=== PATIENT | female | born 1970 ===

== ENCOUNTER 2022-02-21 12:45 | Outpatient (REF) | payer OTHER, SELFPAY ==
[2022-02-21 13:28] LABS: Hemoglobin 13.7 g/dl (12.0-16.0); Mean Corpuscular HGB Conc 31.1 g/dl (31.0-35.0); Mean Corpuscular Volume 83.7 fL (80.0-98.0); Platelet Count 301 X10*3/uL (160-400); Red Blood Count 5.26 X10*6/uL (4.20-5.50); Red Cell Distribution Width 13.5 % (11.0-16.0); White Blood Count 7.2 X10*3/uL (4.8-10.8)
[2022-02-21 13:57] LABS: Alanine Aminotransferase 10 U/L (0-31); Albumin Level 4.3 g/dL (3.5-5.0); Alkaline Phosphatase 88 U/L (39-117); Anion Gap 10 (12-20); Aspartate Amino Transferase 18 U/L (5-31); Bilirubin Total 0.4 mg/dL (0.0-1.0); Blood Urea Nitrogen 20 mg/dL (9-16); Calcium 9.4 mg/dL (8.4-10.2); Carbon Dioxide 28 mmol/L (22-29); Chloride 104 mmol/L (96-108); Cholesterol 221 mg/dL; Estimated Glomerular Filt Rate > 60; Glucose Fasting 95 mg/dL (60-99); HDL Cholesterol 68 mg/dL; LDL Cholesterol Calculated 132 mg/dl; Potassium 4.4 mmol/L (3.3-5.1); Sodium 138 mmol/L (135-145); Total Protein 7.1 g/dL (6.5-8.0); Triglycerides 108 mg/dL
[2022-02-21 14:10] LABS: TSH reflex Free T4 2.04 uIU/mL (0.32-4.0)
== END 2022-02-21 12:46 | disposition home or self-care (01) ==
LOC: HO.WFDLDS 12:45
PROVIDERS: Visit Provider Hospitalist
DX: Z00.00 Encounter for general adult medical examination without abnormal findings (principal)
CPT/HCPCS: 36415; 80053; 80061; 84443; 85027

== ENCOUNTER 2022-11-14 12:55 | Outpatient (REF) | payer OTHER, SELFPAY ==
[2022-11-14 14:17] LABS: MANUAL DIFF FLAG NO
[2022-11-14 14:21] LABS: Basophils Percent Auto 0.5 % (0-2); Eosinophils Absolute Auto 0.3 X10*3/uL (0.0-0.4); Eosinophils Percent Auto 3.9 % (0-4); Hemoglobin 14.3 g/dl (12.0-16.0); Imm Gran Abs Auto 0.03 X10*3/uL (0.00-0.03); Imm Gran Pct Auto 0.4 % (0.0-0.4); Lymphocytes Absolute Auto 2.7 X10*3/uL (1.2-4.9); Lymphocytes Percent Auto 34.3 % (20-40); Mean Corpuscular HGB Conc 31.8 g/dl (31.0-35.0); Mean Corpuscular Hemoglobin 26.7 pg (27.0-33.0); Mean Platelet Volume 10.7 fL (9.4-12.3); Monocytes Absolute Auto 0.5 X10*3/uL (0.1-1.2); Monocytes Percent Auto 6.6 % (2-11); Neutrophils Absolute Auto 4.3 x10*3/uL (2.0-8.3); Neutrophils Percent Auto 54.3 % (45-73); Platelet Count 272 X10*3/uL (160-400); Red Blood Count 5.36 X10*6/uL (4.20-5.50); Red Cell Distribution Width 13.1 % (11.0-16.0); White Blood Count 7.9 X10*3/uL (4.8-10.8)
[2022-11-14 15:00] LABS: Alanine Aminotransferase 16 U/L (0-31); Albumin Level 4.4 g/dL (3.5-5.0); Alkaline Phosphatase 76 U/L (39-117); Anion Gap 13 (12-20); Aspartate Amino Transferase 24 U/L (5-31); Bilirubin Total 0.8 mg/dL (0.0-1.0); Blood Urea Nitrogen 12 mg/dL (9-16); Calcium 9.4 mg/dL (8.4-10.2); Carbon Dioxide 27 mmol/L (22-29); Chloride 103 mmol/L (96-108); Estimated Glomerular Filt Rate > 60; Glucose Random 83 mg/dL (60-115); Potassium 4.2 mmol/L (3.3-5.1); Sodium 139 mmol/L (135-145); Total Protein 7.1 g/dL (6.5-8.0)
== END 2022-11-14 12:56 | disposition home or self-care (01) ==
LOC: HO.WFDLDS 12:55
PROVIDERS: Visit Provider Family Medicine
DX: Z00.00 Encounter for general adult medical examination without abnormal findings (principal); K92.2 Gastrointestinal hemorrhage, unspecified
CPT/HCPCS: 36415; 80053; 85025

== ENCOUNTER 2022-11-21 10:54 | Outpatient (REF) | payer OTHER, SELFPAY ==
--- NOTE | ~2022-11-21 | CT_ITS ---
EXAMINATION: CT ABDOMEN AND PELVIS WITHOUT AND WITH CONTRAST CLINICAL INFORMATION: Gastrointestinal hemorrhage. COMPARISON: None TECHNIQUE: Multidetector volumetric imaging was performed of the abdomen and pelvis before and after the IV administration of 80 mL of Omnipaque 350 intravenous contrast. 2 minute delayed acquisition also performed. Sagittal and coronal reformatted images were obtained on the technologist's workstation. This CT examination was performed using dose optimization techniques as appropriate, variously including the following: *Automated exposure control *Adjustment of mA and/or kV according to patient size (this includes techniques or standardized protocols for targeted exams where dose is matched to indication/reason for exam; i.e. extremities or head) *Use of iterative reconstruction technique DLP: 548 mGy-cm FINDINGS: LUNG BASES: The visualized lung bases are unremarkable. LIVER, GALLBLADDER, AND BILIARY TREE: The liver is normal in size, shape, and attenuation. No focal hepatic lesion or biliary ductal dilatation is present. The gallbladder is unremarkable with no evidence of radiopaque gallstones, gallbladder wall thickening, or obvious pericholecystic inflammatory changes. PANCREAS: Unremarkable SPLEEN: Unremarkable ADRENAL GLANDS: Unremarkable KIDNEYS AND URETERS: The kidneys are normal in size, shape, and attenuation. No hydronephrosis, hydroureter, or calculi seen. No perinephric stranding. BLADDER: Unremarkable GASTROINTESTINAL TRACT: The stomach is normally distended without wall thickening. No focal abnormality. Normal caliber small bowel. Duodenal diverticulum noted. No obstruction. There is no colonic wall thickening or acute inflammation. Diffuse colonic diverticulosis without diverticulitis. Normal appendix. There is no arterial blush of intraluminal contrast identified. There is no pooling of contrast on the delayed acquisition. ABDOMINAL WALL: No significant hernia is appreciated. LYMPH NODES: Normal VASCULAR: Unremarkable PELVIC VISCERA: The uterus and adnexa are unremarkable. OSSEOUS STRUCTURES: No acute or suspicious osseous abnormality. CT/CT abdomen pelvis wo/w IV con IMPRESSION: No acute finding of the abdomen or pelvis. No evidence of active gastrointestinal bleeding. Diffuse colonic diverticulosis without diverticulitis. Fleischner guidelines were followed.
[2022-11-21] MEDS: iohexoL 350 MG/ML 100 ML INFUS..BTL 80 ML IV (11:49)
== END 2022-11-21 10:55 | disposition home or self-care (01) ==
LOC: HO.CT 10:54
PROVIDERS: PCP Hospitalist; Visit Provider Family Medicine
DX: K92.2 Gastrointestinal hemorrhage, unspecified (principal)
CPT/HCPCS: 74178; Q9967

== ENCOUNTER 2022-12-11 12:04 | Outpatient (REF) | payer OTHER, SELFPAY ==
--- NOTE | ~2022-12-11 | XR_ITS ---
EXAMINATION: XR FOOT, RIGHT CLINICAL INFORMATION: Pain in the foot. COMPARISON: None TECHNIQUE: AP, lateral, and oblique views of the right foot. FINDINGS: The bones and soft tissues are normal. No fracture. Alignment is anatomic. Joint spaces are maintained. There is a small plantar calcaneal spur. Small spur at the posterior calcaneus at the Achilles tendon insertion. XR/XR foot RT 2V IMPRESSION: Normal right foot.
== END 2022-12-11 12:05 | disposition home or self-care (01) ==
LOC: HO.XRAY 12:04
PROVIDERS: PCP Hospitalist; Visit Provider Hospitalist
DX: M79.671 Pain in right foot (principal); J45.20 Mild intermittent asthma, uncomplicated; Z91.048 Other nonmedicinal substance allergy status
CPT/HCPCS: 73620

== ENCOUNTER 2023-06-19 10:40 | Outpatient (AMB) | payer OTHER, SELFPAY ==
[2023-06-19 10:44] VITALS: BP 118/72; PULSE 80; RESP 14; TEMP 35.7; O2SAT 98; BMI 21.5
--- NOTE | 2023-06-19 10:44 | A.OFFPC_ITS ---
Vital Signs 06/19/23 10:44 Height 5 ft Weight 110 lb BMI 21.5 BP 118/72 Blood Pressure Location Lt brachial Position Sitting Respiration 14 Pulse 80 Pulse Source Pulse Oximeter Temp 96.2 F L Temp Source Temporal Artery Scan Pulse Oximetry (%) 98 Oxygen Delivery Method Room Air Intake Visit Reasons: [facility] 06/09/23 - asthma Intake Note: Patient was seen at [facility] on 06/09/2023 for an asthmatic flare up. Patient reports her asthma is exacerbated by mold- currently stemming from her environment due to the frequent rain. Patient reports she has a few gardens and [place] Patient reports she had another flare up x2 days ago and she was able to slow down the flare up with the steroids as previously prescribed. Electrical Instrumentation Technician Required: No Accompanied by: Self / Same As Patient Allergies cat dander Allergy (Severe, Verified 06/19/23 10:55) Swelling mold Allergy (Severe, Verified 06/19/23 10:55) Anaphylaxis Seasonal Allergies Allergy (Intermediate, Verified 06/19/23 10:55) itching eyes, running nose dairy Adverse Reaction (Mild, Uncoded 06/19/23 10:55) Diarrhea Medication List - Last Reviewed 06/19/23 by Ebony Beltran albuterol sulfate 90 mcg/actuation (Ventolin HFA) 2 puffs inhalation Q4-6H PRN 1 month budesonide-formoterol 80-4.5 mcg/actuation (Symbicort) 2 puffs inhalation BID ipratropium-albuterol 0.5 mg-3 mg(2.5 mg base)/3 mL 3 mL inhalation Q4H PRN loratadine (Allergy Relief (loratadine)) 10 mg PO DAILY 3 months methylprednisolone 0 mg PO pantoprazole 40 mg PO DAILY Tobacco use date assessed: 06/19/23 Dental Screening Dental Screen Date: 06/19/23 Did you have a dental visit in the last 12 months?: No Did you have a dental problem in the last 6 months where you did not have access to dental care?: No Was dental information given to patient?: Patient has dentist HPI HPI Comments History of Present Illness Details 53-year-old female presents for a follow-up visit. She has history of allergic rhinitis and moderate persistent asthma. She was at [facility] between 06/08/2023 and 06/09/2023 for increasing shortness of breath for over week. She noted she was cleaning her chicken coop when her symptoms worsened. She took asthma inhaler including nebulizer without relief. EMS arrived on the scene and give her 2 nebulizer treatment and 125 mg Solu-Medrol. ED notes: She was found to have hypoxia on ambulation. She was diagnosis moderate persistent asthma with acute exacerbation. She was treated with IV Solu-Medrol and DuoNeb. She was sent home on Medrol Dose Pack and recommended to follow-up with pulmonology. Labs and chest x-ray were unrevealing. She reports continued intermittent nonproductive since her symptoms started 2 weeks ago. No associated symptoms at this time. She attributes asthma exacerbation to moles in an environment, severe due to frequent rain. She states [place] area and is very involved in gardening. She reports h/o asthma exacerbation between May and June. She is on prescribed Symbicort; she notes she has not used the inhaler for the past 6 months; she notes her health plan was changed by the state and the medication is no longer covered. She also notes that her albuterol inhaler is also not longer covered by her health plan; she notes she has been getting the inhaler from a friend who is a health managed care liaison. [facility] Surgical History History of carpal tunnel surgery History of section Family History Mother No problems noted. Father No problems noted. Other Substance use disorder Social History Housing: House Alcohol intake: former Patient Tobacco Use Status: Never used Tobacco e-Cigarette/Vaping Use: Never Used Second Hand Smoke Exposure: Yes service: No Current occupational status: unemployed Cognitive needs: No Hearing needs: No Vision needs: No Questionnaire JERE-7 AMB Questionnaire JERE-7 Date JERE - 7 assessed: 10/17/21 Source: Developed by Drs. Juventino Wilson, Juana Hernández, Jasbir Lee and colleagues, with an educational haroldo from [employer]. ACT Questionnaire In the past 4 weeks, how much of the time did your asthma keep you from getting as much done at work, school or at home?: Some of the time During the past 4 weeks, how often have you had shortness of breath?: More than once a day During the past 4 weeks, how often did your asthma symptoms wake you up at night or earlier than usual in the morning?: 2-3 nights a week During the past 4 weeks, how often have you had to use your rescue inhaler or nebulizer medication?: More than 3 times per day How would you rate your asthma control during the past 4 weeks?: Somewhat controlled ACT Interpretation: Positive Score: 10 Review of Systems Const Details: Const Denies chills, Denies fatigue, Denies fever(s), Denies headache(s) and Denies weakness ENT Denies dizziness and Denies headache(s) Card Denies chest pain, Denies lightheadedness, Denies dyspnea and Denies other (Palpitations) Resp Reports cough, Denies dyspnea, Denies wheezing and Denies other ( shortness of breath) GI Denies abdominal pain, Denies melena, Denies hematochezia, Denies change in bowel habits, Denies dyspepsia and Denies nausea Denies hematuria and Denies dysuria Musc Denies abnormal gait, Denies myalgias, Denies arthralgias, Denies numbness and Denies tingling Skin/Breast Denies rash, Denies unusual bruising and Denies wounds Neuro Denies abnormal gait, Denies dizziness, Denies headache(s), Denies memory loss, Denies numbness, Denies Sensory deficit (Neuro), Denies tingling and Denies weakness Psych Denies anxiety, Denies depression, Denies memory loss Endo Denies cold intolerance, Denies fatigue, Denies heat intolerance, Denies polydipsia and Denies polyuria Aller/Immun Denies wheezing Physical exam (Primary Care) Vital Signs: Last Vital Signs Temp 96.2 F L 06/19/23 10:44 Pulse 80 06/19/23 10:44 Resp 14 06/19/23 10:44 BP 118/72 06/19/23 10:44 Pulse Ox 98 06/19/23 10:44 Oxygen Delivery Method Room Air 06/19/23 10:44 BMI result Body Mass Index 21.5 Tobacco/Smoking Status: Tobacco use Status Tobacco use date assessed 06/19/23 06/19/23 10:58 Patient Tobacco Use Status Never used Tobacco 06/19/23 10:48 e-Cigarette/Vaping Use Never Used 06/19/23 10:48 Const Other: General: no acute distress and well developed Nutritional Appearance: well nourished Orientation/consciousness: patient oriented x3 [facility] Head: Yes normocephalic and Yes atraumatic Eyes General: appearance normal, both eyes and all related structures Pupils: Equal, round and reactive pupils present EOM: EOMs intact bilaterally Resp Effort & Inspection: normal respiratory effort Auscultation: clear to auscultation bilaterally Cardio Rate: regular rate Rhythm: regular rhythm Heart sounds: S1 normal heart sound present, S2 normal heart sound present, no gallops, no murmurs and no rubs GI Palpation (GI): No Abdominal aortic bruit present, Soft to palpation, nontender, No hepatosplenomegaly present and No Rebound tenderness present Auscultation: normal bowel sounds General: Yes no CVA tenderness Back/Spine/Pelvis Back: no CVA tenderness Cervical Spine: cervical ROM normal and No Cervical spine tenderness Thoracic/Lumbar Spine: thoraco-lumbar ROM normal, No pain with thoraco-lumbar ROM, No thoracic spinal tenderness and No lumbar spinal tenderness Extrem General: Yes normal to inspection, No edema and No calf tenderness Skin General: warm and dry. Normal skin color. Normal skin turgor Lesions: no lesions Rashes: no rashes Trauma: no lacerations or abrasions Wounds: no wounds Nails: normal Neuro General: patient oriented x3, gait normal and no focal neuro deficit Cranial nerves: Yes Equal, round and reactive pupils present Cognition (Neuro): normal cognition Gait exam (Neuro): Normal gait present Sensory Exam: No Sensory deficit (Neuro) Psych Appearance: grossly normal Affect: normal affect Attitude: cooperative Thought process: Normal thought process present Assessment and Plan Assessment & Plan (1) Moderate persistent asthma with acute exacerbation: Code(s): J45.41 - Moderate persistent asthma with (acute) exacerbation Plan: Lung sounds clear and equal bilaterally Continue with current treatment regimen Encouraged to avoid asthma triggers The MA will contact the patient's health plan to determine coverage for rescue and long-term asthma inhalers Urgent pulmonology referral made Follow-up in 1 month or return sooner with worsening or new symptoms Verbalized understanding and agreed with treatment plan. Orders: Referrals Pulmonology Referral J45.41 - Moderate persistent asthma with (acute) exacerbation Coding Level of Care Code Est Pt Level 3 (06244) Diagnoses Moderate persistent asthma with acute exacerbation J45.41
== END 2023-06-19 11:22 | disposition home or self-care (01) ==
PROVIDERS: PCP Hospitalist; Visit Provider Nurse Practitioner Family
DX: J45.41 Moderate persistent asthma with (acute) exacerbation (principal)
CPT/HCPCS: 99213

== ENCOUNTER 2023-07-02 | Outpatient (REF) | payer OTHER, SELFPAY | END 2023-07-02 00:01 | disposition home or self-care (01) | LOC: CF | PROVIDERS: Visit Provider Nurse Practitioner Family | DX: J45.909 Unspecified asthma, uncomplicated (principal); R06.00 Dyspnea, unspecified; Z79.899 Other long term (current) drug therapy; Z91.09 Other allergy status, other than to drugs and biological substances | CPT/HCPCS: 94640; 99212 ==

== ENCOUNTER 2023-07-02 15:16 | Outpatient (AMB) | payer OTHER, SELFPAY ==
[2023-07-02 15:18] VITALS: BP 108/64; PULSE 68; O2SAT 100; BMI 22.1
--- NOTE | 2023-07-02 15:18 | MHC.OFFVIS ---
Intake Vital Signs 07/02/23 15:18 Height 5 ft Weight 113 lb BMI 22.1 BP 108/64 Blood Pressure Location Lt brachial Position Sitting Pulse 68 Pulse Source Pulse Oximeter Pulse Oximetry (%) 100 Oxygen Delivery Method Room Air Intake Visit Reasons: Asthma Coffee Break Attendant: Coffee Break Attendant offered & declined Accompanied by: Self / Same As Patient Allergies cat dander Allergy (Severe, Verified 07/02/23 15:24) Swelling mold Allergy (Severe, Verified 07/02/23 15:24) Anaphylaxis Seasonal Allergies Allergy (Intermediate, Verified 07/02/23 15:24) itching eyes, running nose dairy Adverse Reaction (Mild, Uncoded 07/02/23 15:24) Diarrhea Medication List - Last Reconciled 07/02/23 by Alivia Ang LPN albuterol sulfate 90 mcg/actuation 2 puffs inhalation Q4-6H PRN 90 days budesonide-formoterol 80-4.5 mcg/actuation (Symbicort) 2 puffs inhalation BID 90 days ipratropium-albuterol 0.5 mg-3 mg(2.5 mg base)/3 mL 3 mL inhalation Q4H PRN loratadine (Allergy Relief (loratadine)) 10 mg PO DAILY 3 months methylprednisolone 0 mg PO pantoprazole 40 mg PO DAILY HPI Asthma HPI Details Lucía is a pleasant 53 year old female,never smoker, with underlying severe asthma. She was referred by PCP for pulmonary evaluation. She reports dry cough, chest tightness and intermittent wheezing. She describes episodes of sudden onset chest tightness with syncope that have occurred in the past and have happened more frequently over the last two months. The last episode was at the end of May where she was given IV steroids, epi, magnesium and admitted to [facility] 3 nights. In 2019, she was reportedly intubated due to acute respiratory failure. She reports symptoms are suboptimally controlled with duoneb which she uses 2-3 times per day. She was recently prescribed symbicort but has been reluctant to use due to potential side effects. 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 She has been out of work since 2019. She was under the care of [facility] in [place] where she reports having allergy testing performed for food and molds as well as infusions to detox metals . She underwent infusions from [id number] and states her symptoms were quite controlled during this time. She also reports having environmental allergies, as well as cats, dogs and chickens. She denies any family history of lung conditions. [facility] Surgical History History of carpal tunnel surgery History of section Family History Mother No problems noted. Father No problems noted. Other Substance use disorder Social History (Updated 07/02/23 @ 15:26 by Alivia Ang LPN) Housing: House Alcohol intake: former Patient Tobacco Use Status: Never used Tobacco e-Cigarette/Vaping Use: Never Used Second Hand Smoke Exposure: Yes service: No Current occupational status: unemployed Cognitive needs: No Hearing needs: No Vision needs: No Review of Systems Const Denies chills, Denies excessive sweating, Denies fever(s), Denies headache(s) and Denies night sweats Eyes Denies dry eyes, Denies irritation and Denies itchy eyes ENT Reports Normal hearing present, Denies headache(s), Denies nasal congestion, Denies nasal discharge, Denies post nasal drip and Denies sore throat Card Denies chest pain, Denies chest pain at rest, Denies chest pain with activity, Denies claudication, Denies leg edema, Denies orthopnea and Denies paroxysmal nocturnal dyspnea Resp Denies chest congestion, Denies excessive phlegm production, Denies pain on inspiration, Denies pain with cough and Denies stridor Musc Denies myalgias Neuro Reports Normal hearing present and Denies headache(s) Endo Denies excessive sweating Alex/Lymph Denies lymphadenopathy Aller/Immun Denies itchy eyes and Denies seasonal rhinorrhea Physical Exam Vital Signs: Last Vital Signs Pulse 68 07/02/23 15:18 BP 108/64 07/02/23 15:18 Pulse Ox 100 07/02/23 15:18 Oxygen Delivery Method Room Air 07/02/23 15:18 BMI result Body Mass Index 22.1 Const General: cooperative, healthy appearing, comfortable, no acute distress, well developed and alert Orientation/consciousness: patient oriented x3 Limitations: no limitations HEENT Head: Yes normal to inspection, Yes normocephalic and Yes atraumatic Ears: hearing grossly normal bilaterally and external ears normal Eyes General: appearance normal, both eyes and all related structures Eyelids: Yes eyelids normal Sclerae: sclerae normal EOM: EOMs intact bilaterally Neck Neck: Yes normal visual inspection and Yes no lymphadenopathy Lymphatic: no lymphadenopathy noted Chest Chest palpation & inspection: normal inspection of the chest Resp Other: lungs sound diminished, improved after duoneb Effort & Inspection: normal respiratory effort, able to speak in complete sentences, no audible wheezes, no cough, no stridor, not tachypneic, no tripod positioning and no use of accessory muscles Cardio Jugular venous distension: no JVD Rate: regular rate Rhythm: regular rhythm Skin Other: warm, dry General skin exam: no rashes or lesions noted Neuro General: patient oriented x3 Cranial nerves: Yes Normal hearing present Cognition (Neuro): normal cognition Gait exam (Neuro): Normal gait present Extrem General: Yes normal to inspection, Yes capillary refill normal, Yes no clubbing, cyanosis or edema and Yes no pedal edema Psych Appearance: grossly normal and well kempt Speech and movement: Normal speech and movement present and Clear speech present Affect: normal affect Attitude: cooperative Thought process: Normal thought process present Thought content: Normal thought content present Insight: Good insight present (Psych) Judgement: Good judgement present (Psych) Office Procedures Nebulizer Treatment Nebulizer Treatment [id number]-Hyafzvlnt/MDI RX initial, or Nebulizer Subsequent Treatment Office Meds ipratropium 0.5 mg-albuterol 3 mg (2.5 mg base)/3 mL nebulization soln Performing Provider: Bonita Boykin NP Performing Location: [facility] Administered by: Alivia Ang LPN on 07/02/23 16:07 Dose Route Admin Location Dispensed Lot Number Expiration Date [facility] Frame Runner 3 mL inhalation 3 mL [id number] 11/27/24 [id number] [facility] Assessment & Plan Assessment & Plan (1) Asthma: Code(s): J45.909 - Unspecified asthma, uncomplicated (2) Environmental allergies: Code(s): Z91.09 - Other allergy status, other than to drugs and biological substances Plan Lucía's symptoms may be multifactorial given occupational exposures as well as exposure to birds with underlying severe asthma. Will send for PFT as well as chest CT and labs to assess for the possibility of interstitial lung disease. During the visit, she reported an increase in chest tightness, which improved after duoneb. Encouraged patient to trial symbicort prescribed by PCP. Educated on importance of oral hygiene after inhaler use. All questions were answered and patient is in agreement of plan. Will follow up in 6 weeks to review results. Orders: Orders Hypersensitive Pneumonitis Prf Today R06.00 - Dyspnea, unspecified Rast Allergen Today Z91.09 - Other allergy status, other than to drugs and biological substances AMB Nebulizer Treatment 07/02/23 J45.909 - Unspecified asthma, uncomplicated Complete Blood Count Auto Diff Today J45.909 - Unspecified asthma, uncomplicated CT chest wo IV con Today R06.00 - Dyspnea, unspecified PFT pulmonary function test Today J45.909 - Unspecified asthma, uncomplicated Medications: Discontinued albuterol sulfate 90 mcg/actuation Discontinued Reason: Doctor's Order 2 puffs inhalation Q4-6H 90 days PRN 8.5 grams 0RF shortness of breath or wheezing Coding Level of Care Code New Pt Level 4 (47690) Diagnoses Asthma J45.909 Environmental allergies Z91.09 CPT Codes Nebulizer Treatment - Nebulizer Treatment, initial or subsequent: [id number]/MDI RX initial, or Nebulizer Subsequent Treatment ([id number])
== END 2023-07-02 16:36 | disposition home or self-care (01) ==
LOC: HO.HPSW 15:16
PROVIDERS: PCP Hospitalist; Visit Provider Nurse Practitioner Family
DX: J45.909 Unspecified asthma, uncomplicated (principal); Z91.09 Other allergy status, other than to drugs and biological substances
CPT/HCPCS: 99204

== ENCOUNTER 2023-07-03 10:29 | Outpatient (REF) | payer OTHER, SELFPAY ==
[2023-07-07 10:02] LABS: CRP High Sensitivity 0.4 mg/L
== END 2023-07-03 10:30 | disposition home or self-care (01) ==
LOC: HO.WFDLDS 10:29
PROVIDERS: Visit Provider Family Medicine
DX: R10.9 Unspecified abdominal pain (principal); K92.2 Gastrointestinal hemorrhage, unspecified
CPT/HCPCS: 36415; 86141

== ENCOUNTER 2023-07-17 10:52 | Outpatient (REF) | payer OTHER, SELFPAY ==
[2023-07-17 14:48] LABS: MANUAL DIFF FLAG NO
[2023-07-17 14:50] LABS: Basophils Percent Auto 0.5 % (0-2); Eosinophils Absolute Auto 0.2 X10*3/uL (0.0-0.4); Eosinophils Percent Auto 3.7 % (0-4); Hematocrit 40.7 % (37.0-47.0); Hemoglobin 12.9 g/dl (12.0-16.0); Imm Gran Abs Auto 0.02 X10*3/uL (0.00-0.03); Imm Gran Pct Auto 0.3 % (0.0-0.4); Mean Corpuscular HGB Conc 31.7 g/dl (31.0-35.0); Mean Corpuscular Hemoglobin 27.1 pg (27.0-33.0); Mean Corpuscular Volume 85.5 fL (80.0-98.0); Mean Platelet Volume 10.6 fL (9.4-12.3); Monocytes Absolute Auto 0.5 X10*3/uL (0.1-1.2); Monocytes Percent Auto 6.9 % (2-11); Neutrophils Absolute Auto 3.8 x10*3/uL (2.0-8.3); Neutrophils Percent Auto 58.6 % (45-73); Platelet Count 270 X10*3/uL (160-400); Red Blood Count 4.76 X10*6/uL (4.20-5.50); White Blood Count 6.5 X10*3/uL (4.8-10.8)
[2023-07-25 16:43] LABS: Asperg fumigatus Precip Abs NEGATIVE (NEGATIVE); Micropoly faeni Abs NEGATIVE (NEGATIVE); Pigeon serum Abs NEGATIVE (NEGATIVE); Saccharo pora viridis Abs NEGATIVE (NEGATIVE); Thermo candidus Abs NEGATIVE (NEGATIVE); Thermoa vulgaris #1 NEGATIVE (NEGATIVE)
== END 2023-07-17 10:53 | disposition home or self-care (01) ==
LOC: HO.WFDLDS 10:52
PROVIDERS: Visit Provider Nurse Practitioner Family
DX: R06.00 Dyspnea, unspecified (principal); J45.909 Unspecified asthma, uncomplicated; Z91.09 Other allergy status, other than to drugs and biological substances
CPT/HCPCS: 36415; 85025; 86003; 86331; 86606; 86609

== ENCOUNTER 2023-07-18 10:36 | Outpatient (REF) | payer OTHER, SELFPAY ==
--- NOTE | ~2023-07-18 | CT_ITS ---
EXAMINATION: CT CHEST WITHOUT CONTRAST CLINICAL INFORMATION: Dyspnea. COMPARISON: Chest radiograph 07/03/2008, CT abdomen and pelvis 11/21/2022. TECHNIQUE: Multidetector volumetric CT imaging of the chest was done. Axial MIP volume rendering provided. Sagittal and coronal reformatted images were obtained. This CT examination was performed using dose optimization techniques as appropriate, variously including the following: *Automated exposure control *Adjustment of mA and/or kV according to patient size (this includes techniques or standardized protocols for targeted exams where dose is matched to indication/reason for exam; i.e. extremities or head) *Use of iterative reconstruction technique DLP: 204 mGy-cm. FINDINGS: LUNGS: The lungs are clear with no evidence of inflammation or nodules. MEDIASTINUM: The thyroid appears unremarkable. No mediastinal or hilar lymphadenopathy is seen. Heart size normal. CORONARY ARTERY CALCIFICATION: None visualized on this study. PLEURA: There is no pleural effusion. No pleural mass or thickening. AXILLA: No lymphadenopathy. CHEST WALL: Bilateral breast prostheses are present. UPPER ABDOMEN: A few colonic diverticula are noted. There is a 2 cm mass in the posterior right lobe of the liver (3:49) which is unchanged from the prior study (prior CT 9:11) and has characteristics of a cavernous hemangioma with peripheral enhancement. The adrenal glands appear normal. OSSEOUS STRUCTURES: Unremarkable. CT/CT chest wo IV con IMPRESSION: 1. No significant abnormality is seen and a cause for the patient's dyspnea has not been found. 2. Incidental note made of a 2 cm cavernous hemangioma in the liver, colonic diverticula and bilateral breast prostheses. Fleischner guidelines were followed.
== END 2023-07-18 10:37 | disposition home or self-care (01) ==
LOC: HO.CT 10:36
PROVIDERS: PCP Family Medicine; Visit Provider Nurse Practitioner Family
DX: R06.00 Dyspnea, unspecified (principal)
CPT/HCPCS: 71250

== ENCOUNTER 2023-08-01 08:35 | Outpatient (REF) | payer OTHER, SELFPAY | END 2023-08-01 08:36 | disposition home or self-care (01) | LOC: HO.RESP 08:35 | PROVIDERS: PCP Family Medicine; Visit Provider Nurse Practitioner Family | DX: J45.909 Unspecified asthma, uncomplicated (principal) | CPT/HCPCS: 94010; 94727; 94729 ==

== ENCOUNTER → 2023-08-01 09:17 | Outpatient (BNV) | payer OTHER, SELFPAY | PROVIDERS: PCP Family Medicine; Visit Provider Hospitalist | DX: J45.909 Unspecified asthma, uncomplicated (principal) | CPT/HCPCS: 94060; 94727; 94729 ==

== ENCOUNTER 2023-08-29 12:38 | Outpatient (AMB) | payer OTHER, SELFPAY ==
--- NOTE | 2023-08-29 12:44 | A.OFFPC_ITS ---
Vital Signs 08/29/23 12:48 Height 5 ft Weight 117 lb BMI 22.8 BP 98/58 L Blood Pressure Location Lt brachial Position Sitting Respiration 13 Pulse 85 Pulse Source Pulse Oximeter Temp 98.5 F Temp Source Oral Pulse Oximetry (%) 98 Oxygen Delivery Method Room Air Intake Visit Reasons: ongoing skin rash patient-NEEDS PHQ9 Intake Note: Patient is here for a transfer of care from to [place]. Patient shares a concern for an ongoing rash which evidently became poison anita. Patient reports the p oison anita is all gone now. 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 Accompanied by: Self / Same As Patient Allergies cat dander Allergy (Severe, Verified 08/29/23 13:03) Swelling mold Allergy (Severe, Verified 08/29/23 13:03) Anaphylaxis Seasonal Allergies Allergy (Intermediate, Verified 08/29/23 13:03) itching eyes, running nose dairy Adverse Reaction (Mild, Uncoded 08/29/23 13:03) Diarrhea Medication List - Last Reconciled 08/29/23 by Kurt Mcfarland CNP albuterol sulfate 90 mcg/actuation (Ventolin HFA) 2 puffs inhalation Q4-6H PRN 30 days budesonide-formoterol 80-4.5 mcg/actuation (Symbicort) 2 puffs inhalation BID 90 days epinephrine 0.3 mg (0.3 mL) IM Q4H PRN ipratropium-albuterol 0.5 mg-3 mg(2.5 mg base)/3 mL 3 mL inhalation Q4H PRN loratadine (Allergy Relief (loratadine)) 10 mg PO DAILY 3 months pantoprazole 40 mg PO DAILY Tobacco use date assessed: 08/29/23 Dental Screening Dental Screen Date: 08/29/23 Did you have a dental visit in the last 12 months?: Yes Did you have a dental problem in the last 6 months where you did not have access to dental care?: No Was dental information given to patient?: Patient has dentist HPI HPI Comments History of Present Illness Details 53-year-old female presents for transfer of care Her former PCP is who is no longer with the practice She has past medical history significant for severe asthma and seasonal allergies. She is on Symbicort and albuterol inhaler/nebulizer, loratadine, and pantoprazole. She admits to taking her medications as prescribed. She was evaluated by [facility] pulmonology and was last evaluated on 07/02/2023. Recent chest CT was negative for respiratory abnormalities. She states she had PFT done and awaiting results. She notes that she was recently discharged from [facility] pulmonology and was referred to [facility]mon[facility]. She reports sore throat with associated headache which started yesterday. No sick contact. No fever, chills, body aches, fatigue, or weakness. She notes that she is followed by dermatology and had a shave biopsy of a mold on her left jaw and mid upper chest a few days ago. [facility] Surgical History History of carpal tunnel surgery History of section Family History Mother No problems noted. Father No problems noted. Other Substance use disorder Social History Housing: House Alcohol intake: former Patient Tobacco Use Status: Never used Tobacco e-Cigarette/Vaping Use: Never Used Second Hand Smoke Exposure: Yes service: No Current occupational status: unemployed Cognitive needs: No Hearing needs: No Vision needs: No Questionnaire PHQ-9 Over the last 2 weeks, how often have you been bothered by any of the following problems? 1. Little interest or pleasure in doing things: not at all 2. Feeling down, depressed, or hopeless: not at all 3. Trouble falling or staying asleep, or sleeping too much: not at all 4. Feeling tired or having little energy: not at all 5. Poor appetite or overeating: not at all 6. Feeling bad about yourself - or that you are a failure or have let yourself or your family down: not at all 7. Trouble concentrating on things, such as reading the newspaper or watching television: not at all 8. Moving or speaking so slowly that other people could have noticed. Or the opposite - being so fidgety or restless that you have been moving around a lot more than usual: not at all 9. Thoughts that you would be better off or of hurting yourself in some way: not at all Total score: 0 Depression Screening Interpretation: Negative Depression Screening Done: Yes 31108 - PHQ-9 Billing: Yes Source: Developed by Drs. Juventino Wilson, Juana Hernández, Jasbir Lee and colleagues, with an educational haroldo from [employer]. Thrive Questionnaire Date Thrive assessed: 08/29/23 I am a: Patient What is your living situation today?: I have a steady place to live Within the past 12 months, did the food you bought not last and you didn't have the money to get more?: Never true Within the past 12 months, did you worry whether your food would run out before you got money to buy more?: Never true Do you have trouble paying for medicines?: Yes Do you have trouble getting transportation to medical appointments?: No Do you have trouble paying your heating and electricity bill?: No Do you have trouble taking care of your child, family member or friend?: No Do you have trouble with day-to-day activities such as bathing, preparing meals, shopping, managing finances, etc.?: No Are you currently unemployed and looking for a job?: Yes Are you interested in more education?: Yes Please select the resources that you would like help with: None Currently or been in a relationship where the following occur: no concerns re ported AUDIT C Alcohol Use Questionnaire (AUDIT-C) 1. How often do you have a drink containing alcohol?: Never 2. How many drinks containing alcohol do you have on a typical day when you are drinking?: 1 or 2 3. How often do you have six or more drinks on one occasion?: Never Total Score: 0 JERE-7 AMB Questionnaire JERE-7 Date JERE - 7 assessed: 08/29/23 Feeling nervous, anxious, or on edge: 0 = Not at all Not being able to stop or control worryin = Not at all Worrying too much about different things: 0 = Not at all Trouble relaxin = Not at all Being so restless that it is hard to sit still: 0 = Not at all Becoming easily annoyed or irritable: 0 = Not at all Feeling afraid as if something awful might happen: 0 = Not at all Total JERE-7 score (0-4 normal; 5-9 mild; 10-14 moderate; 15-21 severe): 0 Source: Developed by Drs. Juventino Wilson, Juana Hernández, Jasbir Lee and colleagues, with an educational haroldo from [employer]. JERE-7 Assessment Billing JERE-7 Assessment Tool: JERE-7 Assessment 74927 ACT Questionnaire In the past 4 weeks, how much of the time did your asthma keep you from getting as much done at work, school or at home?: Some of the time During the past 4 weeks, how often have you had shortness of breath?: More than once a day During the past 4 weeks, how often did your asthma symptoms wake you up at night or earlier than usual in the morning?: 4 or more nights a week During the past 4 weeks, how often have you had to use your rescue inhaler or nebulizer medication?: More than 3 times per day How would you rate your asthma control during the past 4 weeks?: Somewhat controlled ACT Interpretation: Positive Score: 9 Review of Systems Const Details: Const Denies chills, Denies fatigue, Denies fever(s), Reports headache(s) and Denies weakness ENT Reports as per HPI Card Denies chest pain, Denies lightheadedness, Denies dyspnea and Denies other (Palpitations) Resp Denies cough, Denies dyspnea, Denies wheezing and Denies other ( shortness of breath) GI Denies abdominal pain, Denies melena, Denies hematochezia, Denies change in bowel habits, Denies dyspepsia and Denies nausea Denies hematuria and Denies dysuria Musc Denies abnormal gait, Denies myalgias, Denies arthralgias, Denies numbness and Denies tingling Skin/Breast Denies rash, Denies unusual bruising and Denies wounds Neuro Denies abnormal gait, Denies dizziness, Reports headache(s), Denies memory loss, Denies numbness, Denies Sensory deficit (Neuro), Denies tingling and Denies weakness Psych Denies anxiety, Denies depression, Denies memory loss Endo Denies cold intolerance, Denies fatigue, Denies heat intolerance, Denies polydipsia and Denies polyuria Aller/Immun Denies wheezing Physical exam (Primary Care) Vital Signs: Last Vital Signs Temp 98.5 F 08/29/23 12:48 Pulse 85 08/29/23 12:48 Resp 13 08/29/23 12:48 BP 98/58 L 08/29/23 12:48 Pulse Ox 98 08/29/23 12:48 Oxygen Delivery Method Room Air 08/29/23 12:48 BMI result Body Mass Index 22.8 Tobacco/Smoking Status: Tobacco use Status Tobacco use date assessed 08/29/23 08/29/23 12:56 Patient Tobacco Use Status Never used Tobacco 08/29/23 12:44 e-Cigarette/Vaping Use Never Used 08/29/23 12:44 PHQ-9: PHQ-9 Score PHQ-9: Total score 0 08/29/23 12:59 Depression Screening Interpretation: Negative Thrive Assessment: Date of Thrive Assessment Date Thrive assessed 08/29/23 08/29/23 12:58 Currently or been in a relationship where the following occur: no concerns reported Const Other: General: no acute distress and well developed Nutritional Appearance: well nourished Orientation/consciousness: patient oriented x3 HENMT Head is normocephalic Bilateral ear canal and TM are normal Nasal turbinates are pink and moist Oropharynx with significant erythema, tonsils are swollen with yellow patches, no exudate Sinuses are nontender with palpation No auricular or cervical lymphadenopathy Eyes General: appearance normal, both eyes and all related structures Pupils: Equal, round and reactive pupils present EOM: EOMs intact bilaterally Resp Effort & Inspection: normal respiratory effort Auscultation: clear to auscultation bilaterally Cardio Rate: regular rate Rhythm: regular rhythm Heart sounds: S1 normal heart sound present, S2 normal heart sound present, no gallops, no murmurs and no rubs GI Palpation (GI): No Abdominal aortic bruit present, Soft to palpation, nontender, No hepatosplenomegaly present and No Rebound tenderness present Auscultation: normal bowel sounds General: Yes no CVA tenderness Back/Spine/Pelvis Back: no CVA tenderness Cervical Spine: cervical ROM normal and No Cervical spine tenderness Thoracic/Lumbar Spine: thoraco-lumbar ROM normal, No pain with thoraco-lumbar ROM, No thoracic spinal tenderness and No lumbar spinal tenderness Extrem General: Yes normal to inspection, No edema and No calf tenderness Skin General: warm and dry. Normal skin color. Normal skin turgor Neuro General: patient oriented x3, gait normal and no focal neuro deficit Cranial nerves: Yes Equal, round and reactive pupils present Cognition (Neuro): normal cognition Gait exam (Neuro): Normal gait present Sensory Exam: No Sensory deficit (Neuro) Psych Appearance: grossly normal Affect: normal affect Attitude: cooperative Thought process: Normal thought process present Assessment and Plan Assessment & Plan (1) Strep pharyngitis: Code(s): J02.0 - Streptococcal pharyngitis Plan: Reports sore throat with associated headache for the past 2 days Oropharynx with significant erythema, tonsils are swollen with yellow patches, no exudate Z-Delta ordered. Take as prescribed May take ibuprofen or Tylenol for pain, fever, or discomfort May gargle with warm salt water Adequate hydration encouraged Return with worsening or new symptoms Verbalized understanding and agreed with treatment plan. (2) Poorly controlled intermittent asthma: Code(s): J45.20 - Mild intermittent asthma, uncomplicated Plan: ACT score is 9 and indicates poorly control asthma Continue with current treatment regimen Follow-up with [facility] pulmonology as planned Return or go to the ED with new or worsening symptoms Verbalized understanding and agreed with treatment plan. (3) Laboratory tests ordered as part of a complete physical exam (CPE): Code(s): Z00.00 - Encounter for general adult medical examination without abnormal findings Plan: She has not had lipid panel blood work done in a while. Lipid panel ordered as part of a complete physical exam. Advised to fast for at least 10 hours before getting labs drawn. May drink water Verbalized understanding and agreed with treatment plan. Orders: Orders Lipid Panel Today Z00.00 - Encounter for general adult medical examination without abnormal findings Medications: New azithromycin (Zithromax Z-Delta) For 250 mg dose pack: take 500 mg today (day 1), then 250 mg for 4 days (days 2-5) PO 6 tabs 0RF Coding Level of Care Code Est Pt Level 4 (56458) Diagnoses Strep pharyngitis J02.0 Poorly controlled intermittent asthma J45.20 Laboratory tests ordered as part of a complete physical exam (CPE) Z00.00 Additional Codes JERE-7 Assessment Billing - JERE-7 Assessment Tool: JREE-7 Assessment 24827 ([id number])
[2023-08-29 12:48] VITALS: BP 98/58; PULSE 85; RESP 13; TEMP 36.9; O2SAT 98; BMI 22.8
== END 2023-08-29 13:36 | disposition home or self-care (01) ==
PROVIDERS: PCP Hospitalist; Visit Provider Nurse Practitioner Family
DX: J02.0 Streptococcal pharyngitis (principal); J45.20 Mild intermittent asthma, uncomplicated
CPT/HCPCS: 99214

== ENCOUNTER 2023-10-10 08:32 | Outpatient (AMB) | payer OTHER, SELFPAY ==
--- NOTE | 2023-10-10 08:37 | A.OFFPC_ITS ---
Vital Signs 10/10/23 08:43 Weight 117 lb BP 128/70 Blood Pressure Location Lt brachial Position Sitting Respiration 12 Pulse 62 Pulse Source Pulse Oximeter Temp 98.1 F Temp Source Oral Pulse Oximetry (%) 98 Oxygen Delivery Method Room Air Intake Visit Reasons: PE Intake Note: Patient is here today for her physical. Allergies cat dander Allergy (Severe, Verified 10/10/23 08:55) Swelling mold Allergy (Severe, Verified 10/10/23 08:55) Anaphylaxis Seasonal Allergies Allergy (Intermediate, Verified 10/10/23 08:55) itching eyes, running nose dairy Adverse Reaction (Mild, Uncoded 10/10/23 08:55) Diarrhea Medication List - Last Reconciled 10/10/23 by Kurt Mcfarland CNP albuterol sulfate 90 mcg/actuation (Ventolin HFA) 2 puffs inhalation Q4-6H PRN 30 days budesonide-formoterol 80-4.5 mcg/actuation (Symbicort) 2 puffs inhalation BID 90 days epinephrine 0.3 mg (0.3 mL) IM Q4H PRN ipratropium-albuterol 0.5 mg-3 mg(2.5 mg base)/3 mL 3 mL inhalation Q4H PRN loratadine (Allergy Relief (loratadine)) 10 mg PO DAILY 3 months Tobacco use date assessed: 10/10/23 HPI HPI Comments History of Present Illness Details 53-year-old female presents for an exten ded physical exam She has past medical history significant for severe asthma and seasonal allergies. She is on Symbicort and albuterol inhaler/nebulizer, loratadine, and pantoprazole. She admits to taking her medications as prescribed She reports cold sores to the right commissure. She notes that the sores usually lasts 2 weeks to a month. She reports history of cold sores since childhood with chronic valacyclovir treatment. She requests treatment at this time Last colonoscopy: Never. Declines colonoscopy and Cologuard test. Denies family history of colon cancer. Last mammogram: Never. Declines mammogram. Denies family history of breast cancer Last pap smear test: overy 5 years ago: normal. She requests a referral for a pap smear test Shingrix vaccines: Never. She declines vaccination for shingles [facility] Surgical History History of carpal tunnel surgery History of section Family History Mother No problems noted. Father No problems noted. Other Substance use disorder Social History Housing: House Alcohol intake: former Patient Tobacco Use Status: Never used Tobacco e-Cigarette/Vaping Use: Never Used Second Hand Smoke Exposure: Yes service: No Current occupational status: unemployed Cognitive needs: No Hearing needs: No Vision needs: No Questionnaire PHQ-9 Over the last 2 weeks, how often have you been bothered by any of the following problems? 1. Little interest or pleasure in doing things: not at all 2. Feeling down, depressed, or hopeless: not at all 3. Trouble falling or staying asleep, or sleeping too much: nearly every day 4. Feeling tired or having little energy: several days 5. Poor appetite or overeating: not at all 6. Feeling bad about yourself - or that you are a failure or have let yourself or your family down: not at all 7. Trouble concentrating on things, such as reading the newspaper or watching television: not at all 8. Moving or speaking so slowly that other people could have noticed. Or the opposite - being so fidgety or restless that you have been moving around a lot more than usual: not at all 9. Thoughts that you would be better off or of hurting yourself in some way: not at all Total score: 4 Depression Screening Interpretation: Negative Depression Screening Done: Yes Source: Developed by Drs. Juventino Wilson, Juana Hernández, Jasbir Lee and colleagues, with an educational haroldo from [employer]. Thrive Questionnaire Date Thrive assessed: 08/29/23 JERE-7 AMB Questionnaire JERE-7 Date JERE - 7 assessed: 10/10/23 Feeling nervous, anxious, or on edge: 0 = Not at all Not being able to stop or control worryin = Not at all Worrying too much about different things: 0 = Not at all Trouble relaxin = Not at all Being so restless that it is hard to sit still: 3 = Nearly every day Becoming easily annoyed or irritable: 0 = Not at all Feeling afraid as if something awful might happen: 0 = Not at all Total JERE-7 score (0-4 normal; 5-9 mild; 10-14 moderate; 15-21 severe): 3 Source: Developed by Drs. Juventino Wilson, Juana Hernández, Jasbir Lee and colleagues, with an educational haroldo from [employer]. ACT Questionnaire In the past 4 weeks, how much of the time did your asthma keep you from getting as much done at work, school or at home?: A little of the time During the past 4 weeks, how often have you had shortness of breath?: Once a day During the past 4 weeks, how often did your asthma symptoms wake you up at night or earlier than usual in the morning?: 2-3 nights a week During the past 4 weeks, how often have you had to use your rescue inhaler or nebulizer medication?: More than 3 times per day How would you rate your asthma control during the past 4 weeks?: Somewhat controlled Score: 12 Review of Systems Const Details: Denies chills, Denies fatigue, Denies fever(s), Denies headache(s) and Denies weakness HEENT Denies change in vision, Denies dizziness, Denies headache(s), Denies hearing loss, Denies nasal congestion, Denies sinus pain, Denies sinus pressure and Denies sore throat Card Denies chest pain, Denies lightheadedness, Denies dyspnea and Denies other (palpitations) Resp Denies cough, Denies dyspnea and Denies wheezing GI Denies abdominal pain, Denies melena, Denies hematochezia, Denies change in bowel habits, Denies dyspepsia and Denies nausea Denies hematuria and Denies dysuria Musc Denies abnormal gait, Denies myalgias, Denies arthralgias, Denies numbness and Denies tingling Skin/Breast Reports as per HPI Neuro Denies abnormal gait, Denies dizziness, Denies headache(s), Denies memory loss, Denies numbness, Denies Sensory deficit (Neuro), Denies tingling and Denies weakness Psych Denies anxiety, Denies depression and Denies memory loss Endo Denies cold intolerance, Denies fatigue, Denies heat intolerance, Denies polydipsia and Denies polyuria Alex/Lymph Denies easy bleeding and Denies easy bruising Aller/Immun Denies wheezing Physical exam (Primary Care) Tobacco/Smoking Status: Tobacco use Status Tobacco use date assessed 08/29/23 10/10/23 08:39 Patient Tobacco Use Status Never used Tobacco 10/10/23 08:39 e-Cigarette/Vaping Use Never Used 10/10/23 08:39 Depression Screening Interpretation: Negative Thrive Assessment: Date of Thrive Assessment Date Thrive assessed 08/29/23 10/10/23 08:39 Const Other: General: no acute distress, well developed, alert and awake Nutritional Appearance: well nourished Orientation/consciousness: patient oriented x3 HENMT Head: Yes normocephalic and Yes atraumatic Ears: hearing grossly normal bilaterally and TM's normal bilaterally General nose exam: Normal external nose present and Normal nares present Mouth: Normal oral and palatal mucosa present and moist mucous membranes Teeth and gingiva: dentition normal Throat: Yes oropharynx normal Eyes Pupils: Equal, round and reactive pupils present and Pupil accommodation reflex normal EOM: EOMs intact bilaterally Neck Neck: Yes normal visual inspection, Yes no lymphadenopathy and Yes trachea midline Thyroid: Thyroid normal Carotids: no bruits Lymphatic: no lymphadenopathy noted Chest Chest palpation & inspection: normal inspection of the chest Resp Effort & Inspection: normal respiratory effort Auscultation: clear to auscultation bilaterally Cardio Rate: regular rate Rhythm: regular rhythm Heart sounds: S1 normal heart sound present, S2 normal heart sound present, no gallops, no murmurs and no rubs Bruits: no abdominal aortic bruits and no carotid bruits GI Palpation (GI): No Abdominal aortic bruit present, Soft to palpation, nontender, No hepatosplenomegaly present and No Rebound tenderness present Auscultation: normal bowel sounds General: Yes no CVA tenderness Back/Spine/Pelvis Back: no CVA tenderness Cervical Spine: cervical ROM normal and No Cervical spine tenderness Thoracic/Lumbar Spine: thoraco-lumbar ROM normal, No pain with thoraco-lumbar ROM, No thoracic spinal tenderness and No lumbar spinal tenderness Skin General: warm and dry. Normal skin color. Normal skin turgor Lesions: no lesions Rashes: Small, opened blisters/patch with surrounding erythema noted to the right commissure, no drainage or swelling noted Trauma: no lacerations or abrasions Wounds: no wounds Nails: normal Neuro General: patient oriented x3, gait normal and CN's II-XI intact bilaterally Cranial nerves: Yes Equal, round and reactive pupils present Cognition (Neuro): normal cognition Gait exam (Neuro): Normal gait present Motor exam (neuro): 5/5 motor strength present throughout Sensory Exam: No Sensory deficit (Neuro) Deep tendon reflexes (DTR's): Right patellar reflex intensity grade: 2+ and Left patellar reflex intensity grade: 2+ Extrem General: Yes normal to inspection, No edema and No calf tenderness Psych Appearance: grossly normal Affect: normal affect Attitude: cooperative Thought process: Normal thought process present Assessment and Plan Assessment & Plan (1) Normal physical examination, routine: Code(s): Z00.00 - Encounter for general adult medical examination without abnormal findings Plan: No significant physical restrictions or limitations noted Continue current treatment regimen She has history of slightly elevated total cholesterol level. She has not gotten fast lipid panel blood work done. Advised to get blood work done and schedule a telehealth visit for lab review She has never had a colonoscopy or mammogram. She has never had the Shingrix vaccines. She declines colonoscopy, mammogram, and Shingrix vaccines. Instructed on the importance of colonoscopy and mammogram screening and vaccinat ion for shingles and encouraged to get these screenings and vaccination Follow-up with symptoms or concerns Verbalized understanding and agreed with the plan (2) Poorly controlled intermittent asthma: Code(s): J45.20 - Mild intermittent asthma, uncomplicated Plan: No acute symptoms at this time She was followed by [facility] pul[place]ology and later referred to [facility] pulmonology. She notes she was seen by [facility] pulmonology. 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 Her cold sores last for 2-3 weeks She currently has cold sores to her right commissure Small, opened blisters/patch with surrounding erythema noted to the right commissure, no drainage or swelling noted Acyclovir ordered. Take as prescribed Follow-up with worsening or new signs and symptoms Verbalized understanding and agreed with treatment plan (4) Pap smear for cervical cancer screening: Code(s): Z12.4 - Encounter for screening for malignant neoplasm of cervix Plan: Last Pap smear test was over 5 years ago Referred to [facility] master of ceremonies Medications: New valacyclovir 500 mg PO DAILY 30 days 30 tabs 0RF Coding Level of Care Code Est Pt Prev Care 40-64y(93055) Diagnoses Normal physical examination, routine Z00.00 Poorly controlled intermittent asthma J45.20 Recurrent cold sores B00.1 Pap smear for cervical cancer screening Z12.4
[2023-10-10 08:43] VITALS: BP 128/70; PULSE 62; RESP 12; TEMP 36.7; O2SAT 98
== END 2023-10-10 09:32 | disposition home or self-care (01) ==
PROVIDERS: PCP Family Medicine; Visit Provider Nurse Practitioner Family
DX: Z00.00 Encounter for general adult medical examination without abnormal findings (principal); J45.20 Mild intermittent asthma, uncomplicated; B00.1 Herpesviral vesicular dermatitis; Z12.4 Encounter for screening for malignant neoplasm of cervix
CPT/HCPCS: 99396

== ENCOUNTER 2023-10-10 09:15 | Outpatient (REF) | payer OTHER, SELFPAY ==
[2023-10-10 11:45] LABS: Cholesterol 198 mg/dL (<200); HDL Cholesterol 66 mg/dL (>40); LDL Cholesterol Calculated 120 mg/dL (<100); Triglycerides 64 mg/dL (<150)
== END 2023-10-10 09:16 | disposition home or self-care (01) ==
LOC: HO.WFDLDS 09:15
PROVIDERS: Visit Provider Nurse Practitioner Family
DX: Z00.00 Encounter for general adult medical examination without abnormal findings (principal)
CPT/HCPCS: 36415; 80061

== ENCOUNTER 2023-11-10 09:47 | Outpatient (AMB) | payer OTHER, SELFPAY ==
--- NOTE | 2023-11-10 09:49 | A.OFFPC_ITS ---
Vital Signs 11/10/23 09:51 Height 5 ft Weight 120 lb 2 oz BMI 23.5 BP 110/62 Blood Pressure Location Lt brachial Position Sitting Pulse 78 Pulse Source Pulse Oximeter Pulse Oximetry (%) 98 Oxygen Delivery Method Room Air Intake Visit Reasons: ongoing rash on face Intake Note: Pt is here for an ongoing rash on her face and is here for her allergy test results Allergies cat dander Allergy (Severe, Verified 11/10/23 09:58) Swelling mold Allergy (Severe, Verified 11/10/23 09:58) Anaphylaxis Seasonal Allergies Allergy (Intermediate, Verified 11/10/23 09:58) itching eyes, running nose dairy Adverse Reaction (Mild, Uncoded 11/10/23 09:58) Diarrhea Medication List - Last Reconciled 11/10/23 by Kurt Mcfarland CNP albuterol sulfate 90 mcg/actuation (Ventolin HFA) 2 puffs inhalation Q4-6H PRN 30 days budesonide-formoterol 80-4.5 mcg/actuation (Symbicort) 2 puffs inhalation BID 90 days epinephrine 0.3 mg (0.3 mL) IM Q4H PRN ipratropium-albuterol 0.5 mg-3 mg(2.5 mg base)/3 mL 3 mL inhalation Q4H PRN valacyclovir 500 mg PO DAILY 30 days Tobacco use date assessed: 11/10/23 Dental Screening Dental Screen Date: 11/10/23 Did you have a dental visit in the last 12 months?: No Did you have a dental problem in the last 6 months where you did not have access to dental care?: No Was dental information given to patient?: No HPI HPI Comments History of Present Illness Details 53-year-old female presents with complai nts of an itchy rash on the right side of her chin. She notes that she has had rash on her chin and mouth for the past 2 months. She thinks the rash may be related to food allergy. She has been using calamine lotion with improvement. She request a referral to an plasma center nurse. REPLACED BY [facility] Surgical History History of carpal tunnel surgery History of section Family History Mother No problems noted. Father No problems noted. Other Substance use disorder Social History (Reviewed 08/29/23 @ 12:52 by Ebony Beltran [facility]) Housing: House Alcohol intake: former Patient Tobacco Use Status: Never used Tobacco e-Cigarette/Vaping Use: Never Used Second Hand Smoke Exposure: Yes service: No Current occupational status: unemployed Cognitive needs: No Hearing needs: No Vision needs: No Questionnaire Thrive Questionnaire Date Thrive assessed: 08/29/23 JERE-7 AMB Questionnaire JERE-7 Date JERE - 7 assessed: 10/10/23 Source: Developed by Drs. Juventino Wilson, Juana Hernández, Jasbir Lee and colleagues, with an educational haroldo from [employer]. Review of Systems Const Details: Const Denies chills, Denies fatigue, Denies fever(s), Denies headache(s) and Denies weakness ENT Denies dizziness and Denies headache(s) Card Denies chest pain, Denies lightheadedness, Denies dyspnea and Denies other (Palpitations) Resp Denies cough, Denies dyspnea, Denies wheezing and Denies other ( shortness of breath) GI Denies abdominal pain, Denies melena, Denies hematochezia, Denies change in bowel habits, Denies dyspepsia and Denies nausea Denies hematuria and Denies dysuria Musc Denies abnormal gait, Denies myalgias, Denies arthralgias, Denies numbness and Denies tingling Skin/Breast Reports rash, Denies unusual bruising and Denies wounds Neuro Denies abnormal gait, Denies dizziness, Denies headache(s), Denies memory loss, Denies numbness, Denies Sensory deficit (Neuro), Denies tingling and Denies weakness Psych Denies anxiety, Denies depression, Denies memory loss Endo Denies cold intolerance, Denies fatigue, Denies heat intolerance, Denies polydipsia and Denies polyuria Aller/Immun Denies wheezing Physical exam (Primary Care) Vital Signs: Last Vital Signs Pulse 78 11/10/23 09:51 BP 110/62 11/10/23 09:51 Pulse Ox 98 11/10/23 09:51 Oxygen Delivery Method Room Air 11/10/23 09:51 BMI result Body Mass Index 23.5 Tobacco/Smoking Status: Tobacco use Status Tobacco use date assessed 11/10/23 11/10/23 09:56 Patient Tobacco Use Status Never used Tobacco 11/10/23 09:49 e-Cigarette/Vaping Use Never Used 11/10/23 09:49 Thrive Assessment: Date of Thrive Assessment Date Thrive assessed 08/29/23 11/10/23 09:49 Const Other: General: no acute distress and well developed Nutritional Appearance: well nourished Orientation/consciousness: patient oriented x3 HENMT Head: Yes normocephalic and Yes atraumatic Eyes General: appearance normal, both eyes and all related structures Pupils: Equal, round and reactive pupils present EOM: EOMs intact bilaterally Resp Effort & Inspection: normal respiratory effort Auscultation: clear to auscultation bilaterally Cardio Rate: regular rate Rhythm: regular rhythm Heart sounds: S1 normal heart sound present, S2 normal heart sound present, no gallops, no murmurs and no rubs GI Palpation (GI): No Abdominal aortic bruit present, Soft to palpation, nontender, No hepatosplenomegaly present and No Rebound tenderness present Auscultation: normal bowel sounds General: Yes no CVA tenderness Back/Spine/Pelvis Back: no CVA tenderness Cervical Spine: cervical ROM normal and No Cervical spine tenderness Thoracic/Lumbar Spine: thoraco-lumbar ROM normal, No pain with thoraco-lumbar ROM, No thoracic spinal tenderness and No lumbar spinal tenderness Extrem General: Yes normal to inspection, No edema and No calf tenderness Skin General: warm and dry. Normal skin color. Normal skin turgor Lesions: no lesions Rashes: Slight red, nonraised rash to the right side of her chin, no blister, drainage, or signs of infection Trauma: no lacerations or abrasions Wounds: no wounds Nails: normal Neuro General: patient oriented x3, gait normal and no focal neuro deficit Cranial nerves: Yes Equal, round and reactive pupils present Cognition (Neuro): normal cognition Gait exam (Neuro): Normal gait present Sensory Exam: No Sensory deficit (Neuro) Psych Appearance: grossly normal Affect: normal affect Attitude: cooperative Thought process: Normal thought process present Assessment and Plan Assessment & Plan (1) Facial rash: Code(s): R21 - Rash and other nonspecific skin eruption Plan: Rash to right side of chin x 2 months Slight red, nonraised rash to the right side of her chin, no blister, drainage, or signs of infection May use hydrocortisone cream Foods or environmental allergy may be likely cause Referred to dermatology and plasma center nurse Recent lipid panel lab reviewed with the patient; unremarkable Advised to schedule her next physical exam for later this year Follow-up with symptoms or concerns Verbalized understanding and agreed with treatment plan Orders: Referrals Allergy & Immunology Referral R21 - Rash and other nonspecific skin eruption Dermatology Referral R21 - Rash and other nonspecific skin eruption Coding Level of Care Code Est Pt Level 4 (85066) Diagnoses Facial rash R21
[2023-11-10 09:51] VITALS: BP 110/62; PULSE 78; O2SAT 98; BMI 23.5
== END 2023-11-10 10:17 | disposition home or self-care (01) ==
PROVIDERS: PCP Family Medicine; Visit Provider Nurse Practitioner Family
DX: R21 Rash and other nonspecific skin eruption (principal)
CPT/HCPCS: 99214

== ENCOUNTER 2024-04-05 10:47 | Outpatient (REF) | payer OTHER, SELFPAY | END 2024-04-05 10:48 | disposition home or self-care (01) | LOC: HO.WFDLDS 10:47 | PROVIDERS: Visit Provider Family Medicine | DX: Z13.89 Encounter for screening for other disorder (principal) ==

== ENCOUNTER 2024-04-05 11:12 | Outpatient (REF) | payer OTHER, SELFPAY ==
[2024-04-05 11:35] LABS: MANUAL DIFF FLAG NO
[2024-04-05 11:57] LABS: Basophils Percent Auto 0.6 % (0-2); Eosinophils Absolute Auto 0.4 X10*3/uL (0.0-0.4); Eosinophils Percent Auto 5.6 % (0-4); Hematocrit 43.9 % (37.0-47.0); Hemoglobin 13.9 g/dl (12.0-16.0); Imm Gran Abs Auto 0.02 X10*3/uL (0.00-0.03); Imm Gran Pct Auto 0.3 % (0.0-0.4); Lymphocytes Absolute Auto 2.4 X10*3/uL (1.2-4.9); Lymphocytes Percent Auto 33.6 % (20-40); Mean Corpuscular HGB Conc 31.7 g/dl (31.0-35.0); Mean Corpuscular Hemoglobin 26.3 pg (27.0-33.0); Monocytes Absolute Auto 0.4 X10*3/uL (0.1-1.2); Monocytes Percent Auto 5.5 % (2-11); Neutrophils Absolute Auto 3.9 x10*3/uL (2.0-8.3); Neutrophils Percent Auto 54.4 % (45-73); Platelet Count 274 X10*3/uL (160-400); Red Blood Count 5.29 X10*6/uL (4.20-5.50); Red Cell Distribution Width 13.8 % (11.0-16.0); White Blood Count 7.1 X10*3/uL (4.8-10.8)
[2024-04-05 12:37] LABS: Erythrocyte Sedimentation Rate 2 MM/HR (0-20)
[2024-04-06 09:22] LABS: CRP High Sensitivity 0.3 mg/L
[2024-04-13 18:58] LABS: Histamine Plasma <1.5 ng/mL (< OR = 1.8)
== END 2024-04-05 11:13 | disposition home or self-care (01) ==
LOC: HO.LAB 11:12
PROVIDERS: Absent Provider Nurse Practitioner Family; PCP Family Medicine; Visit Provider Family Medicine
DX: Z00.00 Encounter for general adult medical examination without abnormal findings (principal); J30.2 Other seasonal allergic rhinitis; J45.20 Mild intermittent asthma, uncomplicated
CPT/HCPCS: 36415; 83088; 85025; 85652; 86141

== ENCOUNTER 2024-04-20 11:49 | Outpatient (AMB) | payer OTHER, SELFPAY ==
[2024-04-20 11:52] VITALS: BP 106/64; PULSE 69; RESP 14; TEMP 36.6; O2SAT 99; BMI 21.7
--- NOTE | 2024-04-20 11:52 | A.OFFPC_ITS ---
Vital Signs 04/20/24 11:52 Height 5 ft Weight 111 lb 2 oz BMI 21.7 BP 106/64 Blood Pressure Location Rt brachial Position Sitting Respiration 14 Pulse 69 Pulse Source Pulse Oximeter Temp 97.9 F Temp Source Temporal Artery Scan Pulse Oximetry (%) 99 Oxygen Delivery Method Room Air Intake Visit Reasons: f/u labs and GI referral Intake Note: needs refill on valcyclovir. 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 Allergies cat dander Allergy (Severe, Verified 04/20/24 12:06) Swelling mold Allergy (Severe, Verified 04/20/24 12:06) Anaphylaxis Seasonal Allergies Allergy (Intermediate, Verified 04/20/24 12:06) itching eyes, running nose dairy Adverse Reaction (Mild, Uncoded 04/20/24 12:06) Diarrhea Medication List - Last Reconciled 04/20/24 by Kurt Mcfarland CNP albuterol sulfate 90 mcg/actuation (Ventolin HFA) 2 puffs inhalation Q4-6H PRN 30 days budesonide-formoterol 80-4.5 mcg/actuation (Symbicort) 2 puffs inhalation BID 90 days epinephrine 0.3 mg (0.3 mL) IM Q4H PRN ipratropium-albuterol 0.5 mg-3 mg(2.5 mg base)/3 mL 3 mL inhalation Q4H PRN valacyclovir 500 mg PO DAILY 30 days Tobacco use date assessed: 11/10/23 Dental Screening Dental Screen Date: 11/10/23 HPI HPI Comments History of Present Illness Details 54-year-old female presents with complai nts of burning sensation of her tongue, difficulty breathing, and stomach cramps immediately after eating her meals, including fruits and vegetables. These symptoms have been ongoing for the past 1 month and last for about 20 minutes. She notes improved breathing after using her inhalers. She thinks her symptoms may be related to the mold in her environment. She states that the room that is infested with molds is locked and has not been accessed. She notes that she has not removed the mold in her home due to the amount of money involved to do so. She has been making dietary changes as instructed by her providers. She has an appointment with Allergy/immunology in May. Recent histamine and CRP levels were unremarkable. She request a referral to GI and dietitian. No acute symptoms at this time. [facility] Medical History (Updated 04/20/24 @ 12:00 by EDNA Butt) No pertinent past medical history Surgical History History of carpal tunnel surgery History of section Family History Mother No problems noted. Father No problems noted. Other Substance use disorder Social History Housing: House Alcohol intake: former Patient Tobacco Use Status: Never used Tobacco e-Cigarette/Vaping Use: Never Used Second Hand Smoke Exposure: Yes service: No Current occupational status: unemployed Cognitive needs: No Hearing needs: No Vision needs: Yes Questionnaire Thrive Questionnaire Date Thrive assessed: 08/29/23 JERE-7 AMB Questionnaire JERE-7 Date JERE - 7 assessed: 10/10/23 Source: Developed by Drs. Juventino Wilson, Juana Hernández, Jasbir Lee and colleagues, with an educational haroldo from [employer]. Review of Systems Const Details: Const Denies chills, Denies fatigue, Denies fever(s), Denies headache(s) and Denies weakness ENT Denies dizziness and Denies headache(s) Card Denies chest pain, Denies lightheadedness, Denies dyspnea and Denies other (Palpitations) Resp Denies cough, Denies dyspnea, Denies wheezing and Denies other ( shortness of breath) GI Denies abdominal pain, Denies melena, Denies hematochezia, Denies change in bowel habits, Denies dyspepsia and Denies nausea Denies hematuria and Denies dysuria Musc Denies abnormal gait, Denies myalgias, Denies arthralgias, Denies numbness and Denies tingling Skin/Breast Denies rash, Denies unusual bruising and Denies wounds Neuro Denies abnormal gait, Denies dizziness, Denies headache(s), Denies memory loss, Denies numbness, Denies Sensory deficit (Neuro), Denies tingling and Denies weakness Psych Denies anxiety, Denies depression, Denies memory loss Endo Denies cold intolerance, Denies fatigue, Denies heat intolerance, Denies polydipsia and Denies polyuria Aller/Immun Denies wheezing Physical exam (Primary Care) Vital Signs: Last Vital Signs Temp 97.9 F 04/20/24 11:52 Pulse 69 04/20/24 11:52 Resp 14 04/20/24 11:52 BP 106/64 04/20/24 11:52 Pulse Ox 99 04/20/24 11:52 Oxygen Delivery Method Room Air 04/20/24 11:52 BMI result Body Mass Index 21.7 Tobacco/Smoking Status: Tobacco use Status Tobacco use date assessed 11/10/23 04/20/24 12:00 Patient Tobacco Use Status Never used Tobacco 04/20/24 12:00 e-Cigarette/Vaping Use Never Used 04/20/24 12:00 Thrive Assessment: Date of Thrive Assessment Date Thrive assessed 08/29/23 04/20/24 12:00 Const Other: General: no acute distress and well developed Nutritional Appearance: well nourished Orientation/consciousness: patient oriented x3 HENMT Head: Yes normocephalic and Yes atraumatic Eyes General: appearance normal, both eyes and all related structures Pupils: Equal, round and reactive pupils present EOM: EOMs intact bilaterally Resp Effort & Inspection: normal respiratory effort Auscultation: clear to auscultation bilaterally Cardio Rate: regular rate Rhythm: regular rhythm Heart sounds: S1 normal heart sound present, S2 normal heart sound present, no gallops, no murmurs and no rubs GI Palpation (GI): No Abdominal aortic bruit present, Soft to palpation, nontender, No hepatosplenomegaly present and No Rebound tenderness present Auscultation: normal bowel sounds General: Yes no CVA tenderness Back/Spine/Pelvis Back: no CVA tenderness Cervical Spine: cervical ROM normal and No Cervical spine tenderness Thoracic/Lumbar Spine: thoraco-lumbar ROM normal, No pain with thoraco-lumbar ROM, No thoracic spinal tenderness and No lumbar spinal tenderness Extrem General: Yes normal to inspection, No edema and No calf tenderness Skin General: warm and dry. Normal skin color. Normal skin turgor Neuro General: patient oriented x3, gait normal and no focal neuro deficit Cranial nerves: Yes Equal, round and reactive pupils present Cognition (Neuro): normal cognition Gait exam (Neuro): Normal gait present Sensory Exam: No Sensory deficit (Neuro) Psych Appearance: grossly normal Affect: normal affect Attitude: cooperative Thought process: Normal thought process present Assessment and Plan Assessment & Plan (1) Allergy to mold: Code(s): Z91.048 - Other nonmedicinal substance allergy status Plan: Burning sensation of her tongue, difficulty breathing, and stomach cramps immediately after eating her meals, including fruits and vegetables for the past 1 month Encouraged to avoid mold in her environment and to get help in eliminating them [place] [facility] [place] Advised to go to the ED with worsening symptoms Verbalized understanding and agreed with the plan Orders: Referrals Gastroenterology Referral Z91.048 - Other nonmedicinal substance allergy status [facility] Path Therapist Nutrition Referral Z91.048 - Other nonmedicinal substance allergy status Coding Level of Care Code Est Pt Level 3 (79321) Diagnoses Allergy to mold Z91.048
== END 2024-04-20 12:34 | disposition home or self-care (01) ==
PROVIDERS: PCP Family Medicine; Visit Provider Nurse Practitioner Family
DX: R06.02 Shortness of breath (principal); K14.6 Glossodynia; Z91.048 Other nonmedicinal substance allergy status
CPT/HCPCS: 99213

== ENCOUNTER 2024-04-28 10:32 | Outpatient (AMB) | payer OTHER, SELFPAY ==
--- NOTE | 2024-04-28 10:41 | MHC.AMNUTRGE ---
VS Expanded 04/28/24 10:47 05/03/24 13:44 Height 5 ft 5 ft Weight 110 lb 7.225 oz 110 lb BMI 21.6 21.5 Intake Visit Reasons: Other nonmedicinal substance allergy status/LVM Allergies cat dander Allergy (Severe, Verified 04/20/24 12:06) Swelling mold Allergy (Severe, Verified 04/20/24 12:06) Anaphylaxis Seasonal Allergies Allergy (Intermediate, Verified 04/20/24 12:06) itching eyes, running nose dairy Adverse Reaction (Mild, Uncoded 04/20/24 12:06) Diarrhea Nutrition Presentation Details: Pt presents for MNT for allergy to mold. Pt was referred by PCP, Latanya Weber Pt reports following up with rn plasma center Reports developing rash more so after consuming chocolate Pt reports having hx of etoh dependency 7:30 am B: 1 toasts with boiled egg, water coffee with little or no sugar 10M : fruit lunch : rice/chicken , water or herbal teas dinner : bbq pork ribs over rice forbidden rice , water herbal teas honey sesame seed bread sticks quit alcohol 5 yrs ago BS Monitoring Most Recent Diabetes Results: Cholesterol 198 mg/dL (<200) 10/10/23 HDL Cholesterol 66 mg/dL (>40) 10/10/23 Triglycerides 64 mg/dL (<150) 10/10/23 [id number] Equation Height: 5 ft Weight: 110 lb Resting Metabolic Rate: 1014.43 Calculated Activity Level: Moderate Activity Calories Needed to Maintain Weight: 1572.37 Diagnosis Nutrition problem #1: food nutri know defi As related to (etiology) #1: diagnosis As evidenced by (sign/symptom) #1: knowledge deficit of diet (need review on low mold concepts ) Learning/Education Readiness to learn: good [facility] Medical History (Updated 05/03/24 @ 13:49 by Katina Fink, RD, LDN) No pertinent past medical history Surgical History History of carpal tunnel surgery History of section Family History Mother No problems noted. Father No problems noted. Other Substance use disorder Social History Housing: House Alcohol intake: former Patient Tobacco Use Status: Never used Tobacco e-Cigarette/Vaping Use: Never Used Second Hand Smoke Exposure: Yes service: No Current occupational status: unemployed Cognitive needs: No Hearing needs: No Vision needs: Yes Assessment & Plan Assessment & Plan (1) Other nonmedicinal substance allergy status: Comment: PCP: Recommend monitoring for thiamine deficiency which can be associated with alcoholism and fungal growth Code(s): Z91.048 - Other nonmedicinal substance allergy status Category: Medical Plan: Discuss food safety, low mold diet concept and including thiamine rich foods Patient Instructions: follow food safety/low mold food preparation Reduce intake of fermented foods and abstain from alcohol consumptions and alcohol containing foods Include well cooked protein food sources in each of your meals : fish, eggs, poultry with fresh vegetables following healthy plate method Recommend monitoring for thiamine deficiency Coding Level of Care Code Nutr Indiv Intake (68016) Diagnoses Other nonmedicinal substance allergy status Z91.048 Time Spent (min) 30
[2024-04-28 10:47] VITALS: BMI 21.6
[2024-05-04 10:30] VITALS: BMI 21.5
== END 2024-04-28 11:19 | disposition home or self-care (01) ==
PROVIDERS: PCP Family Medicine; Visit Provider Dietitian, Registered
DX: Z91.048 Other nonmedicinal substance allergy status (principal)

== ENCOUNTER → 2024-04-28 10:32 | Outpatient (BNVA) | payer OTHER, SELFPAY | PROVIDERS: PCP Family Medicine; Visit Provider Dietitian, Registered | DX: Z71.3 Dietary counseling and surveillance (principal); Z91.048 Other nonmedicinal substance allergy status | CPT/HCPCS: 97802 ==

== ENCOUNTER 2024-07-02 14:19 | Outpatient (REF) | payer OTHER, SELFPAY | END 2024-07-02 14:20 | disposition home or self-care (01) | LOC: HO.LNP 14:19 | PROVIDERS: Visit Provider Allergy & Immunology | DX: T78.1XXA Other adverse food reactions, not elsewhere classified, initial encounter (principal); J45.40 Moderate persistent asthma, uncomplicated | CPT/HCPCS: 82542; 82570; 84150 ==

== ENCOUNTER 2024-10-11 08:42 | Outpatient (AMB) | payer OTHER, SELFPAY ==
--- NOTE | 2024-10-11 08:42 | MHC.PC.OV ---
Vital Signs 10/11/24 08:53 Height 5 ft Weight 111 lb 6 oz BMI 21.7 BP 109/69 Blood Pressure Location Rt brachial Position Sitting Respiration 16 Pulse 72 Pulse Source Pulse Oximeter Temp 98.5 F Temp Source Oral Pulse Oximetry (%) 96 Oxygen Delivery Method Room Air Intake Visit Reasons: CPE- NEEDS PHQ9+ THRIVE Intake Note: patient here for CPE Industrial Roofer Required: No Is last menstrual period known: No Post menopausal: No Patient : No Allergies cat dander Allergy (Severe, Verified 10/11/24 09:12) Swelling mold Allergy (Severe, Verified 10/11/24 09:12) Anaphylaxis Seasonal Allergies Allergy (Intermediate, Verified 10/11/24 09:12) itching eyes, running nose dairy Adverse Reaction (Mild, Uncoded 10/11/24 09:12) Diarrhea Medication List - Last Reconciled 10/11/24 by Kurt Mcfarlnad CNP albuterol sulfate 90 mcg/actuation (Ventolin HFA) 2 puffs inhalation Q4-6H PRN 30 days budesonide-formoterol 80-4.5 mcg/actuation (Symbicort) 2 puffs inhalation BID 90 days epinephrine 0.3 mg (0.3 mL) IM Q4H PRN ipratropium-albuterol 0.5 mg-3 mg(2.5 mg base)/3 mL 3 mL inhalation Q4H PRN valacyclovir 500 mg PO DAILY 30 days Tobacco use date assessed: 10/11/24 Dental Screening Dental Screen Date: 10/11/24 Did you have a dental visit in the last 12 months?: Yes Did you have a dental problem in the last 6 months where you did not have access to dental care?: No Was dental information given to patient?: Patient has dentist HPI HPI Comments History of Present Illness Details 54-year-old female presents for an extended physical exam Acute issue(s) - None Past Medical History - Asthma - Seasonal allergies Medication - She is on Ventolin 2 puffs Q 4-6 H p.r.n., Symbicort 2 puffs b.i.d., ipratropium-albuterol 0.5 mg-3 mg Q 4 H p.r.n., valacyclovir 500 mg daily, and EpiPen p.r.n. Social History - Nonsmoker. Does not vape. Drinks 1 shot of vodka twice weekly. Consumes CBD gummies twice weekly - He has not been making healthy dietary choices. He has been exercising routinely - biking and snowboarding. He generally sleep well - She generally make healthy dietary choices. She walks her dogs twice daily. She reports chronic insomnia; sleeps an average of 4 hours nightly, but 6-8 hours with CBD gummies Health maintenance - Last eye exam was over 4 years ago. Encouraged to make an appointment with her pharmacy technology instructor for routine eye care - Last dental visit was a week ago - Last tetanus vaccine was more than 10 years ago; Declines Tdap vaccine - She had never had a colonoscopy. Declines colonoscopy and Cologuard test. Denies family history of colon cancer - She has never had a mammogram. Declines mammogram. Denies family history of breast cancer - Last pap smear test was over 6 years ago. Will refer [place] [facility] embedded software development engineer for a pap smear test - She has never been vaccinated for shingles. She declines vaccination for shingles - She has not been vaccinated for the flu this season; declines influenza vaccine Specialists - [facility] Medical History (Updated 10/11/24 @ 09:41 by Kurt Mcfarland CNP) No pertinent past medical history Surgical History History of carpal tunnel surgery History of section Family History Mother No problems noted. Father No problems noted. Other Substance use disorder Social History Housing: House Alcohol intake: former Patient Tobacco Use Status: Never used Tobacco e-Cigarette/Vaping Use: Never Used Second Hand Smoke Exposure: Yes service: No Current occupational status: unemployed Cognitive needs: No Hearing needs: No Vision needs: Yes Questionnaire PHQ-9 Over the last 2 weeks, how often have you been bothered by any of the following problems? 1. Little interest or pleasure in doing things: not at all 2. Feeling down, depressed, or hopeless: not at all 3. Trouble falling or staying asleep, or sleeping too much: several days 4. Feeling tired or having little energy: several days 5. Poor appetite or overeating: not at all 6. Feeling bad about yourself - or that you are a failure or have let yourself or your family down: not at all 7. Trouble concentrating on things, such as reading the newspaper or watching television: not at all 8. Moving or speaking so slowly that other people could have noticed. Or the opposite - being so fidgety or restless that you have been moving around a lot more than usual: not at all 9. Thoughts that you would be better off or of hurting yourself in some way: not at all Total score: 2 Depression Screening Interpretation: Negative Depression Screening Done: Yes 54880 - PHQ-9 Billing: Yes Source: Developed by Drs. Juventino Wilson, Juana Hernández, Jasbir Lee and colleagues, with an educational haroldo from [employer]. Thrive Questionnaire Date Thrive assessed: 10/11/24 I am a: Patient What is your living situation today?: I have a steady place to live Within the past 12 months, did the food you bought not last and you didn't have the money to get more?: Never true Within the past 12 months, did you worry whether your food would run out before you got money to buy more?: Never true Do you have trouble paying for medicines?: No Do you have trouble getting transportation to medical appointments?: No Do you have trouble paying your heating and electricity bill?: No Do you have trouble taking care of your child, family member or friend?: No Do you have trouble with day-to-day activities such as bathing, preparing meals, shopping, managing finances, etc.?: No Are you currently unemployed and looking for a job?: Yes Are you interested in more education?: Yes Please select the resources that you would like help with: Job search/training and Education Currently or been in a relationship where the following occur: No concerns reported and I choose not to answer THRIVE Score: 0 AUDIT C Alcohol Use Questionnaire (AUDIT-C) 1. How often do you have a drink containing alcohol?: 2-3 times a week 2. How many drinks containing alcohol do you have on a typical day when you are drinking?: 1 or 2 3. How often do you have six or more drinks on one occasion?: Never Total Score: 3 Score Reviewed/Action Taken: Yes JERE-7 AMB Questionnaire JERE-7 Date JERE - 7 assessed: 10/11/24 Feeling nervous, anxious, or on edge: 0 = Not at all Not being able to stop or control worryin = Not at all Worrying too much about different things: 0 = Not at all Trouble relaxin = Not at all Being so restless that it is hard to sit still: 0 = Not at all Becoming easily annoyed or irritable: 0 = Not at all Feeling afraid as if something awful might happen: 0 = Not at all Total JERE-7 score (0-4 normal; 5-9 mild; 10-14 moderate; 15-21 severe): 0 Source: Developed by Drs. Juventino Wilson, Juana Hernández, Jasbir Lee and colleagues, with an educational haroldo from [employer]. JERE-7 Assessment Billing JERE-7 Assessment Tool: JERE-7 Assessment 88293 ACT Questionnaire In the past 4 weeks, how much of the time did your asthma keep you from getting as much done at work, school or at home?: A little of the time During the past 4 weeks, how often have you had shortness of breath?: Not at all During the past 4 weeks, how often did your asthma symptoms wake you up at night or earlier than usual in the morning?: Once or twice per week During the past 4 weeks, how often have you had to use your rescue inhaler or nebulizer medication?: Not at all How would you rate your asthma control during the past 4 weeks?: Well controlled ACT Interpretation: Negative Score: 22 Review of Systems Const Details: Denies chills, Denies fatigue, Denies fever(s), Denies headache(s) and Denies weakness HEENT Denies change in vision, Denies dizziness, Denies headache(s), Denies hearing loss, Denies nasal congestion, Denies sinus pain, Denies sinus pressure and Denies sore throat Card Denies chest pain, Denies lightheadedness, Denies dyspnea and Denies other (palpitations) Resp Denies cough, Denies dyspnea and Denies wheezing GI Denies abdominal pain, Denies melena, Denies hematochezia, Denies change in bowel habits, Denies dyspepsia and Denies nausea Denies hematuria and Denies dysuria Musc Denies abnormal gait, Denies myalgias, Denies arthralgias, Denies numbness and Denies tingling Skin/Breast Denies rash, Denies unusual bruising and Denies wounds Neuro Denies abnormal gait, Denies dizziness, Denies headache(s), Denies memory loss, Denies numbness, Denies Sensory deficit (Neuro), Denies tingling and Denies weakness Psych Denies anxiety, Denies depression and Denies memory loss Endo Denies cold intolerance, Denies fatigue, Denies heat intolerance, Denies polydipsia and Denies polyuria Alex/Lymph Denies easy bleeding and Denies easy bruising Aller/Immun Denies wheezing Physical exam (Primary Care) Vital Signs: Last Vital Signs Temp 98.5 F 10/11/24 08:53 Pulse 72 10/11/24 08:53 Resp 16 10/11/24 08:53 BP 109/69 10/11/24 08:53 Pulse Ox 96 10/11/24 08:53 Oxygen Delivery Method Room Air 10/11/24 08:53 BMI result Body Mass Index 21.7 Tobacco/Smoking Status: Tobacco use Status Tobacco use date assessed 10/11/24 10/11/24 08:52 Patient Tobacco Use Status Never used Tobacco 10/11/24 08:52 e-Cigarette/Vaping Use Never Used 10/11/24 08:52 PHQ-9: PHQ-9 Score PHQ-9: Total score 2 10/11/24 09:04 Depression Screening Interpretation: Negative Thrive Assessment: Date of Thrive Assessment Date Thrive assessed 10/11/24 10/11/24 08:52 Currently or been in a relationship where the following occur: No concerns reported and I choose not to answer Const Other: General: no acute distress, well developed, alert and awake Nutritional Appearance: well nourished Orientation/consciousness: patient oriented x3 HENMT Head: Yes normocephalic and Yes atraumatic Ears: hearing grossly normal bilaterally and TM's normal bilaterally General nose exam: Normal external nose present and Normal nares present Mouth: Normal oral and palatal mucosa present and moist mucous membranes Teeth and gingiva: dentition normal Throat: Yes oropharynx normal Eyes Pupils: Equal, round and reactive pupils present and Pupil accommodation reflex normal EOM: EOMs intact bilaterally Neck Neck: Yes normal visual inspection, Yes no lymphadenopathy and Yes trachea midline Thyroid: Thyroid normal Carotids: no bruits Lymphatic: no lymphadenopathy noted Chest Chest palpation & inspection: normal inspection of the chest Resp Effort & Inspection: normal respiratory effort Auscultation: clear to auscultation bilaterally Cardio Rate: regular rate Rhythm: regular rhythm Heart sounds: S1 normal heart sound present, S2 normal heart sound present, no gallops, no murmurs and no rubs Bruits: no abdominal aortic bruits and no carotid bruits GI Palpation (GI): No Abdominal aortic bruit present, Soft to palpation, nontender, No hepatosplenomegaly present and No Rebound tenderness present Auscultation: normal bowel sounds General: Yes no CVA tenderness Back/Spine/Pelvis Back: no CVA tenderness Cervical Spine: cervical ROM normal and No Cervical spine tenderness Thoracic/Lumbar Spine: thoraco-lumbar ROM normal, No pain with thoraco-lumbar ROM, No thoracic spinal tenderness and No lumbar spinal tenderness Skin General: warm and dry. Normal skin color. Normal skin turgor Lesions: no lesions Rashes: no rashes Trauma: no lacerations or abrasions Wounds: no wounds Nails: normal Neuro General: patient oriented x3, gait normal and CN's II-XI intact bilaterally Cranial nerves: Yes Equal, round and reactive pupils present Cognition (Neuro): normal cognition Gait exam (Neuro): Normal gait present Motor exam (neuro): 5/5 motor strength present throughout Sensory Exam: No Sensory deficit (Neuro) Deep tendon reflexes (DTR's): Right patellar reflex intensity grade: 2+ and Left patellar reflex intensity grade: 2+ Extrem General: Yes normal to inspection, No edema and No calf tenderness Psych Appearance: grossly normal Affect: normal affect Attitude: cooperative Thought process: Normal thought process present Coding Level of Care Code Est Pt Level 3 (71163) Est Pt Prev Care 40-64y(13784) Diagnoses Normal physical examination, routine Z00.00 Seasonal allergies J30.2 Asthma J45.909 Pap smear for cervical cancer screening Z12.4 Insomnia G47.00 Laboratory tests ordered as part of a complete physical exam (CPE) Z00.00 Additional Codes JERE-7 Assessment Billing - JERE-7 Assessment Tool: JERE-7 Assessment 04932 ([id number]) PHQ-9 - 37161 - PHQ-9 Billing: Yes ([id number]) Asthma Control Questionnaire - ACT Interpretation: Negative ([id number]) Assessment & Plan Assessment & Plan (1) Normal physical examination, routine: Code(s): Z00.00 - Encounter for general adult medical examination without abnormal findings Category: Medical Plan: No significant functional limitations noted. Advised to get lab work done and follow-up in 2-3 weeks for telehealth visit for labs review or sooner with symptoms or concerns. Verbalized understanding and agreed with the plan. (2) Seasonal allergies: Code(s): J30.2 - Other seasonal allergic rhinitis Category: Medical Plan: Continue current treatment regimen. Followed by [facility]. (3) Asthma: Code(s): J45.909 - Unspecified asthma, uncomplicated Category: Medical Plan: Well controlled asthma. Continue current treatment regimen. Follow-up with symptoms or concerns. Verbalized understanding and agreed with the plan. (4) Pap smear for cervical cancer screening: Code(s): Z12.4 - Encounter for screening for malignant neoplasm of cervix Category: Medical Plan: Referred [place] [facility] senior insight manager [employer] (5) Insomnia: Code(s): G47.00 - Insomnia, unspecified Category: Medical Plan: Instructed on sleep hygiene. Routine exercise encouraged to improve sleep. May take melatonin 3 mg every night for sleep. Follow-up with worsening or new symptoms. Verbalized understanding and agreed with the plan. (6) Laboratory tests ordered as part of a complete physical exam (CPE): Code(s): Z00.00 - Encounter for general adult medical examination without abnormal findings Category: Medical Plan: Fasting labs ordered as part of a complete physical exam. Advised to fast for at least 10 hours before getting labs drawn. May drink water Verbalized understanding and agreed with treatment plan. Orders: Orders Comprehensive [place]. Panel Fast Today Z00.00 - Encounter for general adult medical examination without abnormal findings Lipid Panel Today Z00.00 - Encounter for general adult medical examination without abnormal findings TSH reflex Free T4 Today Z00.00 - Encounter for general adult medical examination without abnormal findings Microalbumin, Random (w Creat) Today Z00.00 - Encounter for general adult medical examination without abnormal findings Complete Blood Count Auto Diff Today Z00.00 - Encounter for general adult medical examination without abnormal findings UA CC w/rflx Micro + Cult Today Z00.00 - Encounter for general adult medical examination without abnormal findings Referrals HEALTH CARE MARKETING MANAGER Referral Z12.4 - Encounter for screening for malignant neoplasm of cervix
[2024-10-11 08:53] VITALS: BP 109/69; PULSE 72; RESP 16; TEMP 36.9; O2SAT 96; BMI 21.7
== END 2024-10-11 09:29 | disposition home or self-care (01) ==
LOC: HO.HMCFM 08:42
PROVIDERS: PCP Family Medicine; Visit Provider Nurse Practitioner Family
DX: Z00.00 Encounter for general adult medical examination without abnormal findings (principal); J45.909 Unspecified asthma, uncomplicated; G47.00 Insomnia, unspecified

== ENCOUNTER → 2024-10-11 08:42 | Outpatient (BNVA) | payer OTHER, SELFPAY | PROVIDERS: PCP Family Medicine; Visit Provider Nurse Practitioner Family | DX: Z00.00 Encounter for general adult medical examination without abnormal findings (principal); J30.2 Other seasonal allergic rhinitis; J45.909 Unspecified asthma, uncomplicated; G47.00 Insomnia, unspecified; Z12.4 Encounter for screening for malignant neoplasm of cervix; Z79.899 Other long term (current) drug therapy | CPT/HCPCS: 96127; 96160; 99212; 99396 ==

== ENCOUNTER 2024-11-23 10:09 | Outpatient (REF) | payer OTHER, SELFPAY ==
[2024-11-23 11:17] LABS: MANUAL DIFF FLAG NO
[2024-11-23 11:25] LABS: Basophils Percent Auto 0.6 % (0-2); Eosinophils Absolute Auto 0.3 X10*3/uL (0.0-0.4); Eosinophils Percent Auto 3.9 % (0-4); Hematocrit 42.3 % (37.0-47.0); Hemoglobin 13.3 g/dl (12.0-16.0); Imm Gran Abs Auto 0.02 X10*3/uL (0.00-0.03); Imm Gran Pct Auto 0.3 % (0.0-0.4); Lymphocytes Percent Auto 44.6 % (20-40); Mean Corpuscular HGB Conc 31.4 g/dl (31.0-35.0); Mean Corpuscular Volume 82.6 fL (80.0-98.0); Mean Platelet Volume 9.9 fL (9.4-12.3); Monocytes Absolute Auto 0.4 X10*3/uL (0.1-1.2); Monocytes Percent Auto 5.4 % (2-11); Neutrophils Percent Auto 45.2 % (45-73); Platelet Count 281 X10*3/uL (160-400); Red Blood Count 5.12 X10*6/uL (4.20-5.50); Red Cell Distribution Width 14.2 % (11.0-16.0); White Blood Count 6.7 X10*3/uL (4.8-10.8)
[2024-11-23 11:30] LABS: Appearance Urine Clear; Color Urine Yellow; Glucose Urine UA Negative (Negative); Leukocyte Esterase Urine Small (1+) (Negative); Nitrite Urine Negative (Negative); UMIC TRIGGER UACC YES; Urine Blood Negative (Negative); Urine Ketones Negative (Negative); Urine Protein Negative (Neg-Trace)
[2024-11-23 11:35] LABS: Bacteria Urine None Seen (None Seen); Hyaline Casts Urine 0-2 /LPF (0-2); RBC Urine 0-2 /HPF (0-2); UACC Culture Trigger YES
[2024-11-23 12:01] LABS: Creatinine Urine 115.62 mg/dL; Microalbum/Creatinine Ratio Ur 5.1 ug/mg cr (<30)
[2024-11-23 12:14] LABS: Alanine Aminotransferase 15 U/L (0-31); Albumin Level 4.2 g/dL (3.5-5.0); Alkaline Phosphatase 60 U/L (39-117); Anion Gap 5 (12-20); Aspartate Amino Transferase 21 U/L (5-31); Bilirubin Total 0.4 mg/dL (0.0-1.0); Blood Urea Nitrogen 15 mg/dL (9-16); Calcium 8.7 mg/dL (8.4-10.2); Carbon Dioxide 29 mmol/L (22-29); Chloride 109 mmol/L (96-108); Cholesterol 202 mg/dL (<200); Estimated Glomerular Filt Rate > 60; Glucose Fasting 91 mg/dL (60-99); HDL Cholesterol 66 mg/dL (>40); LDL Cholesterol Calculated 123 mg/dL (<100); Potassium 4.4 mmol/L (3.3-5.1); Sodium 139 mmol/L (135-145); Total Protein 7.1 g/dL (6.5-8.0); Triglycerides 65 mg/dL (<150)
[2024-11-23 12:28] LABS: TSH reflex Free T4 2.38 uIU/mL (0.32-4.0)
== END 2024-11-23 10:10 | disposition home or self-care (01) ==
LOC: HO.WFDLDS 10:09
PROVIDERS: Visit Provider Nurse Practitioner Family
DX: Z00.00 Encounter for general adult medical examination without abnormal findings (principal)
CPT/HCPCS: 36415; 80053; 80061; 81001; 82043; 82570; 84443; 85025; 87086

== ENCOUNTER 2024-12-03 15:33 | Outpatient (AMB) | payer OTHER, SELFPAY ==
--- NOTE | 2024-12-03 15:28 | A.OFFPC_ITS ---
Intake Visit Reasons: Telehealth 2-3 wks labs review Allergies cat dander Allergy (Severe, Verified 12/03/24 15:28) Swelling mold Allergy (Severe, Verified 12/03/24 15:28) Anaphylaxis Seasonal Allergies Allergy (Intermediate, Verified 12/03/24 15:28) itching eyes, running nose dairy Adverse Reaction (Mild, Uncoded 10/11/24 09:12) Diarrhea Medication List - Last Reconciled 12/03/24 by Mike Burden MD albuterol sulfate 90 mcg/actuation (Ventolin HFA) 2 puffs inhalation Q4-6H PRN 30 days budesonide-formoterol 80-4.5 mcg/actuation (Symbicort) 2 puffs inhalation BID 90 days epinephrine 0.3 mg (0.3 mL) IM Q4H PRN ipratropium-albuterol 0.5 mg-3 mg(2.5 mg base)/3 mL 3 mL inhalation Q4H PRN valacyclovir 500 mg PO DAILY 30 days Tobacco use date assessed: 10/11/24 Dental Screening Dental Screen Date: 10/11/24 HPI Telehealth 2-3 wks labs review HPI Details Patient?presents?by?telemedicine?to?follow-up?lab?work Reviewed?labs?with?patient: LDL?cholesterol?is?elevated We?also?discussed?screening?colon?cancer.??Patient?declines?colonoscopy. She?denies?any?family?history?of?colon?cancer [facility] Medical History (Updated 12/03/24 @ 16:03 by Mike Burden MD) No pertinent past medical history Surgical History History of carpal tunnel surgery History of section Family History Mother No problems noted. Father No problems noted. Other Substance use disorder Social History Housing: House Alcohol intake: former Patient Tobacco Use Status: Never used Tobacco e-Cigarette/Vaping Use: Never Used Second Hand Smoke Exposure: Yes service: No Current occupational status: unemployed Cognitive needs: No Hearing needs: No Vision needs: Yes Questionnaire Thrive Questionnaire Date Thrive assessed: 10/11/24 JERE-7 AMB Questionnaire JERE-7 Date JERE - 7 assessed: 10/11/24 Source: Developed by Drs. Juventino Wilson, Juana Hernández, Jasbir Lee and colleagues, with an educational haroldo from [employer]. Review of Systems Const Denies chills, Denies fatigue, Denies fever(s), Denies headache(s) and Denies weakness ENT Denies dizziness and Denies headache(s) Card Denies chest pain, Denies lightheadedness, Denies dyspnea and Denies other (Palpitations) Resp Denies cough, Denies dyspnea, Denies wheezing and Denies other ( shortness of breath) Musc Denies numbness and Denies tingling Neuro Denies dizziness, Denies headache(s), Denies numbness, Denies tingling, Denies paresthesias and Denies weakness Psych Denies anxiety and Denies depression Endo Denies fatigue Aller/Immun Denies wheezing Physical exam (Primary Care) Tobacco/Smoking Status: Tobacco use Status Tobacco use date assessed 10/11/24 12/03/24 15:31 Patient Tobacco Use Status Never used Tobacco 12/03/24 15:31 e-Cigarette/Vaping Use Never Used 12/03/24 15:31 Thrive Assessment: Date of Thrive Assessment Date Thrive assessed 10/11/24 12/03/24 15:31 Telehealth Telehealth Telehealth Platform: Telephone Location of provider rendering services: practice address Location of patient: address on file Patient Identification confirmed using: Name, : Yes Telehealth method: voice only Patient verbally consented to treatment: Yes Patient verbally consented to billing insurance company: Yes Patient informed of any privacy concerns related to visit: Yes Minutes spent on Phone/Video with Pt.: 8 Coding Level of Care Code Tele Est Pt Level 2 (99698) Diagnoses Elevated LDL cholesterol level E78.00 Screening for colon cancer Z12.11 Assessment & Plan Assessment & Plan (1) Elevated LDL cholesterol level: Code(s): E78.00 - Pure hypercholesterolemia, unspecified Category: Medical Plan: LDL?cholesterol?is?elevated. HDL?ratios?are?good?however Encouraged?a?diet?lower?in?saturated?fats?and?cholesterol. Encouraged?diet?and?exercise (2) Screening for colon cancer: Code(s): Z12.11 - Encounter for screening for malignant neoplasm of colon Category: Medical Plan: Patient?has?never?had?a?colonoscopy. She?declines?colonoscopy She agrees?to?Cologuard?test.??Ordered. Patient?also?notes?that?she?has?been?given?a?diagnosis?of?MCAS. Denies?GI?symptoms Can?let?know?if?needs?a?referral Orders: Orders Comprehensive [place]. Panel Fast Today Z00.00 - Encounter for general adult medical examination without abnormal findings Complete Blood Count Auto Diff Today Z00.00 - Encounter for general adult medical examination without abnormal findings UA and rflx microscopic Today Z00.00 - Encounter for general adult medical examination without abnormal findings Lipid Panel Today Z00.00 - Encounter for general adult medical examination without abnormal findings Microalbumin, Random (w Creat) Today I10 - Essential (primary) hypertension, Z00.00 - Encounter for general adult medical examination without abnormal findings TSH reflex Free T4 Today Z00.00 - Encounter for general adult medical examination without abnormal findings Referrals Cologuard Test Z12.11 - Encounter for screening for malignant neoplasm of colon
== END 2024-12-03 17:05 | disposition home or self-care (01) ==
LOC: HO.HMCFM 15:33
PROVIDERS: PCP Family Medicine; Visit Provider Family Medicine
DX: E78.00 Pure hypercholesterolemia, unspecified (principal); Z12.11 Encounter for screening for malignant neoplasm of colon

== ENCOUNTER 2025-02-22 09:27 | Outpatient (AMB) | payer OTHER, SELFPAY ==
--- NOTE | 2025-02-22 09:29 | MHC.PC.OV ---
Vital Signs 02/22/25 09:33 02/22/25 10:15 02/22/25 10:16 02/22/25 10:16 Height 5 ft Weight 110 lb BMI 21.5 BP 128/66 123/62 124/68 114/77 Blood Pressure Location Rt brachial Rt brachial Rt brachial Rt brachial Position Sitting Supine Sitting Standing Respiration 16 Pulse 80 70 71 71 Pulse Source Pulse Oximeter Pulse Oximeter Pulse Oximeter Pulse Oximeter Temp 98.2 F Temp Source Oral Pulse Oximetry (%) 99 98 98 91 L Oxygen Delivery Method Room Air Room Air Room Air Room Air Intake Visit Reasons: Severe Dizziness Intake Note: patient here c/o dizziness for a couple months now but now its almost every day. 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 Is last menstrual period known: No Post menopausal: No Patient : No Allergies cat dander Allergy (Severe, Verified 02/22/25 09:37) Swelling mold Allergy (Severe, Verified 02/22/25 09:37) Anaphylaxis Seasonal Allergies Allergy (Intermediate, Verified 02/22/25 09:37) itching eyes, running nose dairy Adverse Reaction (Mild, Uncoded 02/22/25 09:37) Diarrhea Medication List - Last Reconciled 02/22/25 by Kurt Mcfarland CNP albuterol sulfate 90 mcg/actuation (Ventolin HFA) 2 puffs inhalation Q4-6H PRN 30 days budesonide-formoterol 80-4.5 mcg/actuation (Symbicort) 2 puffs inhalation BID 90 days epinephrine 0.3 mg (0.3 mL) IM Q4H PRN ipratropium-albuterol 0.5 mg-3 mg(2.5 mg base)/3 mL 3 mL inhalation Q4H PRN valacyclovir 500 mg PO DAILY 30 days Tobacco use date assessed: 02/22/25 Dental Screening Dental Screen Date: 02/22/25 Did you have a dental visit in the last 12 months?: Yes Did you have a dental problem in the last 6 months where you did not have access to dental care?: No Was dental information given to patient?: Patient has dentist HPI HPI Comments History of Present Illness Details 55-year-old female presents with complaints of dizziness which has been ongoing on and off for the past couple months. Her symptoms have been more frequent in the past 2-3 weeks, occurring one to 2 two times daily 5 out of 7 days. She notes that her dizziness to course with position changes, including bending to standing and moving [id number]. She notes that she had dizziness for two days and then brief blindness about 15 years ago. 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 She was advised to follow up every 5 years but never did. She is unsure whether the tumor was benign or cancerous. [facility] Medical History (Updated 02/22/25 @ 09:59 by Kurt Mcfarland CNP) No pertinent past medical history Surgical History History of carpal tunnel surgery History of section Family History Mother No problems noted. Father No problems noted. Other Substance use disorder Social History Housing: House Alcohol intake: former Patient Tobacco Use Status: Never used Tobacco e-Cigarette/Vaping Use: Never Used Second Hand Smoke Exposure: Yes service: No Current occupational status: unemployed Cognitive needs: No Hearing needs: No Vision needs: Yes Questionnaire PHQ-9 Over the last 2 weeks, how often have you been bothered by any of the following problems? 1. Little interest or pleasure in doing things: not at all 2. Feeling down, depressed, or hopeless: not at all 3. Trouble falling or staying asleep, or sleeping too much: not at all 4. Feeling tired or having little energy: not at all 5. Poor appetite or overeating: not at all 6. Feeling bad about yourself - or that you are a failure or have let yourself or your family down: not at all 7. Trouble concentrating on things, such as reading the newspaper or watching television: not at all 8. Moving or speaking so slowly that other people could have noticed. Or the opposite - being so fidgety or restless that you have been moving around a lot more than usual: not at all 9. Thoughts that you would be better off or of hurting yourself in some way: not at all Total score: 0 Depression Screening Interpretation: Negative Depression Screening Done: Yes Source: Developed by Drs. Juventino Wilson, Juana Hernández, Jasbir Lee and colleagues, with an educational haroldo from [employer] Thrive Questionnaire Date Thrive assessed: 10/11/24 I am a: Patient What is your living situation today?: I have a steady place to live Within the past 12 months, did the food you bought not last and you didn't have the money to get more?: Never true Within the past 12 months, did you worry whether your food would run out before you got money to buy more?: Never true Do you have trouble paying for medicines?: No Do you have trouble getting transportation to medical appointments?: No Do you have trouble paying your heating and electricity bill?: No Do you have trouble taking care of your child, family member or friend?: No Do you have trouble with day-to-day activities such as bathing, preparing meals, shopping, managing finances, etc.?: No Are you currently unemployed and looking for a job?: No Are you interested in more education?: No Please select the resources that you would like help with: None Currently or been in a relationship where the following occur: No concerns reported THRIVE Score: 0 AUDIT C Alcohol Use Questionnaire (AUDIT-C) 1. How often do you have a drink containing alcohol?: Never Total Score: 0 JERE-7 AMB Questionnaire JERE-7 Date JERE - 7 assessed: 10/11/24 Feeling nervous, anxious, or on edge: 0 = Not at all Not being able to stop or control worryin = Not at all Worrying too much about different things: 0 = Not at all Trouble relaxin = Not at all Being so restless that it is hard to sit still: 0 = Not at all Becoming easily annoyed or irritable: 0 = Not at all Feeling afraid as if something awful might happen: 0 = Not at all Total JERE-7 score (0-4 normal; 5-9 mild; 10-14 moderate; 15-21 severe): 0 Source: Developed by Drs. Juvention Wilson, Jasbir Queen and colleagues, with an educational haroldo from [employer] Review of Systems Const Details: Const Denies chills, Denies fatigue, Denies fever(s), Denies headache(s) and Denies weakness ENT Reports dizziness and Denies headache(s) Card Denies chest pain, Denies lightheadedness, Denies dyspnea and Denies other (Palpitations) Resp Denies cough, Denies dyspnea, Denies wheezing and Denies other ( shortness of breath) GI Denies abdominal pain, Denies melena, Denies hematochezia, Denies change in bowel habits, Denies dyspepsia and Denies nausea Denies hematuria and Denies dysuria Musc Denies abnormal gait, Denies myalgias, Denies arthralgias, Denies numbness and Denies tingling Skin/Breast Denies rash, Denies unusual bruising and Denies wounds Neuro Denies abnormal gait, Reports dizziness, Denies headache(s), Denies memory loss, Denies numbness, Denies Sensory deficit (Neuro), Denies tingling and Denies weakness Psych Denies anxiety, Denies depression, Denies memory loss Endo Denies cold intolerance, Denies fatigue, Denies heat intolerance, Denies polydipsia and Denies polyuria Aller/Immun Denies wheezing Physical exam (Primary Care) Vital Signs: Last Vital Signs Temp 98.2 F 02/22/25 09:33 Pulse 71 02/22/25 10:16 Resp 16 02/22/25 09:33 BP 114/77 02/22/25 10:16 Pulse Ox 91 L 02/22/25 10:16 Oxygen Delivery Method Room Air 02/22/25 10:16 BMI result Body Mass Index 21.5 Tobacco/Smoking Status: Tobacco use Status Tobacco use date assessed 02/22/25 02/22/25 09:36 Patient Tobacco Use Status Never used Tobacco 02/22/25 09:36 e-Cigarette/Vaping Use Never Used 02/22/25 09:36 PHQ-9: PHQ-9 Score PHQ-9: Total score 0 02/22/25 10:17 Depression Screening Interpretation: Negative Thrive Assessment: Date of Thrive Assessment Date Thrive assessed 10/11/24 02/22/25 09:36 Currently or been in a relationship where the following occur: No concerns reported Const Other: General: no acute distress and well developed Nutritional Appearance: well nourished Orientation/consciousness: patient oriented x3 HENMT Head is normocephalic Bilateral ear canal and TM are normal Nasal turbinates and oropharynx are pink and moist Sinuses are nontender with palpation No auricular or cervical lymphadenopathy Eyes General: appearance normal, both eyes and all related structures Pupils: Equal, round and reactive pupils present EOM: EOMs intact bilaterally Resp Effort & Inspection: normal respiratory effort Auscultation: clear to auscultation bilaterally Cardio Rate: regular rate Rhythm: regular rhythm Heart sounds: S1 normal heart sound present, S2 normal heart sound present, no gallops, no murmurs and no rubs GI Palpation (GI): No Abdominal aortic bruit present, Soft to palpation, nontender, No hepatosplenomegaly present and No Rebound tenderness present Auscultation: normal bowel sounds General: Yes no CVA tenderness Back/Spine/Pelvis Back: no CVA tenderness Cervical Spine: cervical ROM normal and No Cervical spine tenderness Thoracic/Lumbar Spine: thoraco-lumbar ROM normal, No pain with thoraco-lumbar ROM, No thoracic spinal tenderness and No lumbar spinal tenderness Extrem General: Yes normal to inspection, No edema and No calf tenderness Skin General: warm and dry. Normal skin color. Normal skin turgor Neuro General: patient oriented x3, gait normal and no focal neuro deficit Cranial nerves: Yes Equal, round and reactive pupils present Cognition (Neuro): normal cognition Gait exam (Neuro): Normal gait present Sensory Exam: No Sensory deficit (Neuro) Psych Appearance: grossly normal Affect: normal affect Attitude: cooperative Thought process: Normal thought process present Coding Level of Care Code Est Pt Level 4 (23751) Diagnoses Vertigo R42 Assessment & Plan Assessment & Plan (1) Vertigo: Code(s): R42 - Dizziness and giddiness Category: Medical Plan: Will trial meclizine 25 mg twice daily as needed. May be related to history of brain tumor. Head CT ordered. Follow-up in 1 month or sooner with worsening or new symptoms. Verbalized understanding and agreed with the plan. Orders: Orders CT head/brain wo IV con Today R42 - Dizziness and giddiness Medications: New meclizine 25 mg PO BID PRN 60 tabs 0RF dizziness
[2025-02-22 09:33] VITALS: BP 128/66; PULSE 80; RESP 16; TEMP 36.8; O2SAT 99; BMI 21.5
[2025-02-22 10:15] VITALS: BP 123/62; PULSE 70; O2SAT 98
[2025-02-22 10:16] VITALS: BP 114/77; BP 124/68; PULSE 71; O2SAT 91; O2SAT 98
== END 2025-02-22 10:07 | disposition home or self-care (01) ==
LOC: HO.HMCFM 09:27
PROVIDERS: PCP Nurse Practitioner Family; Visit Provider Nurse Practitioner Family
DX: R42 Dizziness and giddiness (principal)

== ENCOUNTER → 2025-02-22 09:27 | Outpatient (BNVA) | payer OTHER, SELFPAY | PROVIDERS: PCP Nurse Practitioner Family; Visit Provider Nurse Practitioner Family | DX: R42 Dizziness and giddiness (principal) | CPT/HCPCS: 99212 ==

== ENCOUNTER 2025-02-24 14:37 | Outpatient (REF) | payer OTHER, SELFPAY ==
--- NOTE | ~2025-02-24 | CT_ITS ---
EXAMINATION: CT HEAD WITHOUT CONTRAST CLINICAL INFORMATION: Dizziness and giddiness. COMPARISON: None available. TECHNIQUE: Contiguous axial imaging was performed from the skull base to vertex without intravenous administration of contrast. This CT examination was performed using dose optimization techniques as appropriate, variously including the following: *Automated exposure control *Adjustment of mA and/or kV according to patient size (this includes techniques or standardized protocols for targeted exams where dose is matched to indication/reason for exam; i.e. extremities or head) *Use of iterative reconstruction technique FINDINGS: There is no evidence of intracranial hemorrhage or extra-axial fluid collection. There is no mass effect, or edema. No CT evidence of acute territorial infarct. Ventricles, sulci, and cisterns are normal in size and configuration for patient age. No hydrocephalus. No midline shift. Negative hyperdense MCA sign. Negative insular ribbon sign. No white matter abnormality. Normal pituitary. Globes and orbital contents image normally. No extracranial soft tissue abnormalities. Partially opacified left maxillary sinus, chronic appearing with mildly thickened sinus carver. The paranasal sinuses, mastoid air cells, and tympanic cavities are otherwise normally aerated. No suspicious bony abnormalities. There are no acute fractures evident. CT/CT head/brain wo IV con IMPRESSION: 1. No acute intracranial abnormality. 2. Partially opacified left maxillary sinus, likely chronic given appearance.. Electronically signed by: Derrick Epps MD 02/24/2025 04:01 PM EDT
== END 2025-02-24 14:38 | disposition home or self-care (01) ==
LOC: HO.CT 14:37
PROVIDERS: PCP Nurse Practitioner Family; Visit Provider Nurse Practitioner Family
DX: R42 Dizziness and giddiness (principal)
CPT/HCPCS: 70450

== ENCOUNTER → 2025-02-24 14:39 | Outpatient (BNV) | payer OTHER, SELFPAY | PROVIDERS: PCP Nurse Practitioner Family; Visit Provider Radiology Diagnostic Radiology | DX: R42 Dizziness and giddiness (principal) | CPT/HCPCS: 70450 ==

== ENCOUNTER 2025-03-29 09:54 | Outpatient (AMB) | payer OTHER, SELFPAY ==
--- NOTE | 2025-03-29 09:56 | A.OFFPC_ITS ---
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 Is last menstrual period known: No Post menopausal: No Patient : No Allergies cat dander Allergy (Severe, Verified 03/29/25 10:09) Swelling mold Allergy (Severe, Verified 03/29/25 09:58) Anaphylaxis Seasonal Allergies Allergy (Intermediate, Verified 03/29/25 09:58) itching eyes, running nose dairy Adverse Reaction (Mild, Uncoded 02/22/25 09:37) Diarrhea Medication List - Last Reconciled 03/29/25 by Kurt Mcfarland CNP albuterol sulfate 90 mcg/actuation (Ventolin HFA) 2 puffs inhalation Q4-6H PRN 30 days budesonide-formoterol 80-4.5 mcg/actuation (Symbicort) 2 puffs inhalation BID 90 days epinephrine 0.3 mg (0.3 mL) IM Q4H PRN ipratropium-albuterol 0.5 mg-3 mg(2.5 mg base)/3 mL 3 mL inhalation Q4H PRN meclizine 25 mg PO BID PRN valacyclovir 500 mg PO DAILY 30 days Tobacco use date assessed: 03/29/25 Dental Screening Dental Screen Date: 03/29/25 Did you have a dental visit in the last 12 months?: Yes Did you have a dental problem in the last 6 months where you did not have access to dental care?: No Was dental information given to patient?: Patient has dentist HPI HPI Comments History of Present Illness Details 55-year-old female presents for vertigo follow-up. She notes that she never started meclizine there was prescribed at her last visit. She states that her dizziness has lessened since her last visit; she has been experiencing intermittent dizziness, lasting a few minutes to few hours, few times daily. Her symptoms intensify his with activity or going up and down stairs. She denies headache, or visual disturbances. 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 She was advised to follow up every 5 years but never did. She is unsure whether the tumor was benign or cancerous. She denies acute symptoms at this time. [facility] Medical History (Updated 02/22/25 @ 09:59 by Kurt Mcfarland CNP) No pertinent past medical history Surgical History History of carpal tunnel surgery History of section Family History Mother No problems noted. Father No problems noted. Other Substance use disorder Social History Housing: House Alcohol intake: former Patient Tobacco Use Status: Never used Tobacco e-Cigarette/Vaping Use: Never Used Second Hand Smoke Exposure: Yes Patient : No service: No Current occupational status: unemployed Cognitive needs: No Hearing needs: No Vision needs: Yes Questionnaire Thrive Questionnaire Date Thrive assessed: 02/22/25 I am a: Patient What is your living situation today?: I have a steady place to live Within the past 12 months, did the food you bought not last and you didn't have the money to get more?: Never true Within the past 12 months, did you worry whether your food would run out before you got money to buy more?: Never true Do you have trouble paying for medicines?: No Do you have trouble getting transportation to medical appointments?: No Do you have trouble paying your heating and electricity bill?: No Do you have trouble taking care of your child, family member or friend?: No Do you have trouble with day-to-day activities such as bathing, preparing meals, shopping, managing finances, etc.?: No Are you currently unemployed and looking for a job?: No Are you interested in more education?: No Please select the resources that you would like help with: None Currently or been in a relationship where the following occur: No concerns reported THRIVE Score: 0 JERE-7 AMB Questionnaire JERE-7 Date JERE - 7 assessed: 10/11/24 Source: Developed by Drs. Juventino Wilson, Juana Hernández, Jasbir Lee and colleagues, with an educational haroldo from [employer]. Review of Systems Const Details: Const Denies chills, Denies fatigue, Denies fever(s), Denies headache(s) and Denies weakness ENT Reports dizziness and Denies headache(s) Card Denies chest pain, Denies dyspnea and Denies other (Palpitations) Resp Denies cough, Denies dyspnea, Denies wheezing and Denies other ( shortness of breath) GI Denies abdominal pain, Denies melena, Denies hematochezia, Denies change in bowel habits, Denies dyspepsia and Denies nausea Denies hematuria and Denies dysuria Musc Denies abnormal gait, Denies myalgias, Denies arthralgias, Denies numbness and Denies tingling Skin/Breast Denies rash, Denies unusual bruising and Denies wounds Neuro Denies abnormal gait, Reports dizziness, Denies headache(s), Denies memory loss, Denies numbness, Denies Sensory deficit (Neuro), Denies tingling and Denies weakness Psych Denies anxiety, Denies depression, Denies memory loss Endo Denies cold intolerance, Denies fatigue, Denies heat intolerance, Denies polydipsia and Denies polyuria Aller/Immun Denies wheezing Physical exam (Primary Care) Vital Signs: Last Vital Signs Temp 98.5 F 03/29/25 10:00 Pulse 68 03/29/25 10:00 Resp 16 03/29/25 10:00 BP 112/70 03/29/25 10:00 Pulse Ox 98 03/29/25 10:00 BMI result Body Mass Index 21.6 Tobacco/Smoking Status: Tobacco use Status Tobacco use date assessed 03/29/25 03/29/25 10:02 Patient Tobacco Use Status Never used Tobacco 03/29/25 09:58 e-Cigarette/Vaping Use Never Used 03/29/25 09:58 Thrive Assessment: Date of Thrive Assessment Date Thrive assessed 02/22/25 03/29/25 09:58 Currently or been in a relationship where the following occur: No concerns reported Const Other: General: no acute distress and well developed Nutritional Appearance: well nourished Orientation/consciousness: patient oriented x3 HENMT Head: Yes normocephalic and Yes atraumatic Eyes General: appearance normal, both eyes and all related structures Pupils: Equal, round and reactive pupils present EOM: EOMs intact bilaterally Resp Effort & Inspection: normal respiratory effort Auscultation: clear to auscultation bilaterally Cardio Rate: regular rate Rhythm: regular rhythm Heart sounds: S1 normal heart sound present, S2 normal heart sound present, no gallops, no murmurs and no rubs GI Palpation (GI): No Abdominal aortic bruit present, Soft to palpation, nontender, No hepatosplenomegaly present and No Rebound tenderness present Auscultation: normal bowel sounds General: Yes no CVA tenderness Back/Spine/Pelvis Back: no CVA tenderness Cervical Spine: cervical ROM normal and No Cervical spine tenderness Thoracic/Lumbar Spine: thoraco-lumbar ROM normal, No pain with thoraco-lumbar ROM, No thoracic spinal tenderness and No lumbar spinal tenderness Extrem General: Yes normal to inspection, No edema and No calf tenderness Skin General: warm and dry. Normal skin color. Normal skin turgor Neuro General: patient oriented x3, gait normal and no focal neuro deficit Cranial nerves: Yes Equal, round and reactive pupils present Cognition (Neuro): normal cognition Gait exam (Neuro): Normal gait present Sensory Exam: No Sensory deficit (Neuro) Psych Appearance: grossly normal Affect: normal affect Attitude: cooperative Thought process: Normal thought process present Coding Level of Care Code Est Pt Level 3 (01645) Diagnoses Vertigo R42 Assessment & Plan Assessment & Plan (1) Vertigo: Code(s): R42 - Dizziness and giddiness Category: Medical Plan: She states that her dizziness has lessened since her last visit; she has been experiencing intermittent dizziness, lasting a few minutes to few hours, few times daily. Her symptoms intensify his with activity or going up and down stairs. She denies headache, or visual disturbances. 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 She was advised to follow up every 5 years but never did. She is unsure whether the tumor was benign or cancerous. No focal neuro deficit. Recent head CT in February was unremarkable. May be related to issues in the vestibular system. She has not taken meclizine as prescribed and declined starting the medication. Will refer to physical therapy for vestibular rehab. Follow-up with worsening or new symptoms. Verbalized understanding and agreed with the treatment plan. Orders: Orders PT Evaluation and Treatment Today R42 - Dizziness and giddiness Medications: Discontinued meclizine Discontinued Reason: Patient Refused 25 mg PO BID PRN 60 tabs 0RF dizziness
[2025-03-29 10:00] VITALS: BP 112/70; PULSE 68; RESP 16; TEMP 36.9; O2SAT 98; BMI 21.6
== END 2025-03-29 14:17 | disposition home or self-care (01) ==
LOC: HO.HMCFM 09:55
PROVIDERS: PCP Nurse Practitioner Family; Visit Provider Nurse Practitioner Family
DX: R42 Dizziness and giddiness (principal)

== ENCOUNTER → 2025-03-29 09:54 | Outpatient (BNVA) | payer OTHER, SELFPAY | PROVIDERS: PCP Nurse Practitioner Family; Visit Provider Nurse Practitioner Family | DX: R42 Dizziness and giddiness (principal) | CPT/HCPCS: 99212 ==